=== PATIENT | female | born 1990 | race Caucasian/White ===

== ENCOUNTER → 2017-07-25 10:33 | Outpatient (CLI) | payer BC, SELFPAY ==
[2017-07-31 04:11] LABS: Alternaria tenuis <0.10 kU/L (Class 0); Ash, White <0.10 kU/L (Class 0); Aspergillus fumigatus <0.10 kU/L (Class 0); Bermuda Grass <0.10 kU/L (Class 0); Birch <0.10 kU/L (Class 0); Black Walnut <0.10 kU/L (Class 0); Cat Hair / Dander,Stand <0.10 kU/L (Class 0); Cedar, Mountain <0.10 kU/L (Class 0); Cladosporium herbarum <0.10 kU/L (Class 0); Cockroach, American 0.56 kU/L (Class II); Cottonwood <0.10 kU/L (Class 0); D farinae Mite <0.10 kU/L (Class 0); D pteronyssinus <0.10 kU/L (Class 0); Dog Epithelia <0.10 kU/L (Class 0); Elm, American White <0.10 kU/L (Class 0); Immunoglobulin E 58 IU/mL (0-100); Maple/Box Elder <0.10 kU/L (Class 0); Mulberry, White <0.10 kU/L (Class 0); Oak, White <0.10 kU/L (Class 0); Pecan <0.10 kU/L (Class 0); Penicillium Notatum <0.10 kU/L (Class 0); Pigweed, Rough <0.10 kU/L (Class 0); Ragweed, Short/Common <0.10 kU/L (Class 0); Russian Thistle <0.10 kU/L (Class 0); Sheep Sorrel <0.10 kU/L (Class 0); Sycamore, American <0.10 kU/L (Class 0); Timothy Grass <0.10 kU/L (Class 0)
[2017-07-31 11:39] LABS: Mouse Urine <0.10 kU/L (Class 0)
== END ==
PROVIDERS: Family Provider Family Medicine; PCP Family Medicine; Visit Provider Otolaryngology
DX: T78.40XA Allergy, unspecified, initial encounter (principal)
CPT/HCPCS: 36415; 82785; 86003

== ENCOUNTER → 2017-09-04 15:19 | Outpatient (CLI) | payer BC, SELFPAY ==
[2017-09-04 16:13] LABS: Hematocrit 39.9 % (37-47); Hemoglobin 13.1 g/dl (12.0-15.0); Mean Corp Hgb Conc 32.8 g/gl (32-36); Mean Corpuscular Hgb 29.8 pg (27.0-32.0); Mean Corpuscular Volume 90.7 fL (81-99); Mean Platelet Vol. 9.1 fl (6.2-12.0); Platelet Count 273 K/mm3 (150-450); RBC Distribution Width CV 11.8 % (11.6-14.6); RBC Distribution Width SD 38.7 fl (35.1-43.9); White Blood Count 10.1 K/mm3 (4.4-11.0)
[2017-09-04 16:17] LABS: Scan Indicated on CBC? Y/N NO
[2017-09-04 17:01] LABS: Anion Gap 7 (5-15); BUN 15 mg/dL (7-18); BUN/Creat Ratio 20.7 RATIO (10-20); Calcium,Total 9.3 mg/dL (8.5-10.1); Chloride 106 mmol/L (98-107); Creatinine, Serum 0.73 mg/dL (0.55-1.02); EST Glomerular Filtration Rate 103 mL/min (>60); Est Glom Filt Rate - Afr Amer 124 mL/min (>60); Glucose 85 mg/dL (74-106); Potassium 3.9 mmol/L (3.5-5.1); Sodium Level 141 mmol/L (136-145); Thyroid Stim Hormone (TSH) 2.57 uIU/mL (0.358-3.74)
== END ==
PROVIDERS: Family Provider Family Medicine; PCP Family Medicine; Visit Provider Internal Medicine Cardiovascular Disease
DX: R00.2 Palpitations (principal)
CPT/HCPCS: 36415; 80048; 84443; 85027

== ENCOUNTER → 2018-01-09 09:34 | Outpatient (CLI) | payer MEDICAID, SELFPAY ==
[2018-01-09 14:00] LABS: Chlamydia Trachomatis by PCR Negative (Negative); Neisserai gonorrhoeae by PCR Negative (Negative); Probe Check PASS; Sample Adequacy Control PASS; Specimen Processing Control PASS
[2018-01-14 09:05] LABS: HPV Reflexed? NOT INDICATED
== END ==
PROVIDERS: Visit Provider Obstetrics & Gynecology
DX: Z12.4 Encounter for screening for malignant neoplasm of cervix (principal); Z11.3 Encounter for screening for infections with a predominantly sexual mode of transmission
CPT/HCPCS: 87491; 87591; 88175; G0145

== ENCOUNTER → 2018-01-23 13:43 | Outpatient (CLI) | payer MEDICAID, SELFPAY ==
[2018-01-23 15:39] LABS: Absolute Lymphocyte Count 1.93 X10^3/ul (0.83-4.51); Absolute Neutrophil Count 7.3 X10^3/uL (2.0-7.7); Basophil# 0.02 X10^3/uL; Basophil% 0.2 % (0-1); Color, Urine Yellow (Yellow); Eosinophil# 0.11 X10^3/uL; Eosinophils% 1.1 % (0-5); Glucose, Dipstick Normal (Normal); Hematocrit 36.5 % (37-47); Hemoglobin 12.3 g/dl (12.0-15.0); Ketone-Dipstick 5 mg/dl (Negative); Leukocyte Esterase-Dipstick 25 /ul (Negative); Lymphocyte # 1.93 X10^3/ul (4.0); Lymphocyte % 19.5 % (19-41); Mean Corp Hgb Conc 33.7 g/gl (32-36); Mean Corpuscular Hgb 29.8 pg (27.0-32.0); Mean Corpuscular Volume 88.4 fL (81-99); Mean Platelet Vol. 9.3 fl (6.2-12.0); Monocyte# 0.56 X10^3/uL; Monocyte% 5.6 % (0-10); Neutrophil # 7.26 X10^3/uL (2.7-7.7); Neutrophil % 73.2 % (47-70); Nitrite-Dipstick Negative (Negative); Occult Blood-Urine 25 /ul (Negative); Platelet Count 272 K/mm3 (150-450); Protein-Dipstick 15 mg/dl (Negative); RBC Distribution Width CV 11.7 % (11.6-14.6); RBC Distribution Width SD 37.2 fl (35.1-43.9); Red Blood Count 4.13 M/mm3 (4.2-5.4); Urine Bilirubin Dipstick Negative (Negative); Urine Clarity Sl. Cloudy (Clear); Urine Urobilinogen Normal (Normal); White Blood Count 9.9 K/mm3 (4.4-11.0)
[2018-01-23 15:42] LABS: POSITIVE COUNT NO; POSITIVE DIFFERENTIAL NO; POSITIVE MORPHOLOGY NO
[2018-01-23 15:58] LABS: Thyroid Stim Hormone (TSH) 1.42 uIU/mL (0.358-3.74)
[2018-01-23 16:16] LABS: Amphetamine Urine VISTA NEGATIVE (<1000 ng/mL); Barbiturate Urine VISTA NEGATIVE (< 200 ng/mL); Benzodiazepine Urine VISTA NEGATIVE (< 200 ng/mL); Cocaine Urine VISTA NEGATIVE (< 300 ng/mL); Ecstacy Urine VISTA NEGATIVE (< 500 ng/mL); Methadone Urine VISTA NEGATIVE (< 300 ng/mL); PCP Urine VISTA NEGATIVE (< 25 ng/mL); THC Urine VISTA NEGATIVE (< 50 ng/mL); Vista UDS pH Range 5
[2018-01-23 16:30] LABS: COTININE Drug Screen Negative (<200 ng/mL)
[2018-01-23 16:37] LABS: HIV - WCH Non-Reactive (Nonreactive); Rubella IgG 44.5 IU/mL
[2018-01-24 05:44] LABS: Prenatal RPR NONREACTIVE (NONREACTIVE)
[2018-01-28 11:52] LABS: HEPATITIS B SURFACE AG Negative (Negative); Hep C Antibodies <0.1 s/co ratio (0.0-0.9)
== END ==
PROVIDERS: Visit Provider Obstetrics & Gynecology
DX: Z34.81 Encounter for supervision of other normal pregnancy, first trimester (principal)
CPT/HCPCS: 36415; 80307; 81002; 84443; 85025; 86703; 86762; 86803; 87340

== ENCOUNTER → 2018-02-20 15:44 | Outpatient (CLI) | payer MEDICAID, SELFPAY | PROVIDERS: Visit Provider Obstetrics & Gynecology | DX: O23.41 Unspecified infection of urinary tract in pregnancy, first trimester (principal); Z3A.00 Weeks of gestation of pregnancy not specified | CPT/HCPCS: 87086; 87088 ==

== ENCOUNTER → 2018-05-28 14:55 | Outpatient (CLI) | payer OTHER, MEDICAID, SELFPAY ==
[2017-09-04 14:39] VITALS: BMI 25.7
[2018-05-28 15:58] LABS: Glucose Challenge Gest 1H 50g 94 mg/dL (70-140)
[2018-05-28 16:07] LABS: Hematocrit 33.1 % (37-47); Mean Corp Hgb Conc 33.2 g/gl (32-36); Mean Corpuscular Hgb 30.6 pg (27.0-32.0); Mean Corpuscular Volume 91.9 fL (81-99); Mean Platelet Vol. 8.3 fl (6.2-12.0); Platelet Count 337 K/mm3 (150-450); RBC Distribution Width CV 11.9 % (11.6-14.6); RBC Distribution Width SD 38.4 fl (35.1-43.9); White Blood Count 14.2 K/mm3 (4.4-11.0)
[2018-05-28 16:08] LABS: Scan Indicated on CBC? Y/N NO
== END ==
PROVIDERS: Visit Provider Obstetrics & Gynecology
DX: Z34.83 Encounter for supervision of other normal pregnancy, third trimester (principal)
CPT/HCPCS: 82950; 85027

== ENCOUNTER → 2018-07-31 | Outpatient (CLI) | payer OTHER, MEDICAID, SELFPAY ==
[2017-09-04 14:39] VITALS: BMI 25.7
== END | disposition home or self-care (01) ==
LOC: WOBLAB 16:18
PROVIDERS: Visit Provider Obstetrics & Gynecology
DX: Z36.85 Encounter for antenatal screening for Streptococcus B (principal)
CPT/HCPCS: 87081

== ENCOUNTER → 2018-08-07 15:06 | Outpatient (CLI) | payer OTHER, MEDICAID, SELFPAY ==
[2018-08-07 15:17] LABS: ROM Internal Control Test YES-OK TO RESULT pt. (Internal QC)
[2018-08-07 15:19] LABS: ROM Patient Test Negative (Negative)
== END ==
PROVIDERS: Family Provider Nurse Practitioner Family; PCP Nurse Practitioner Family; Referring Provider Obstetrics & Gynecology; Visit Provider Obstetrics & Gynecology
DX: Z34.83 Encounter for supervision of other normal pregnancy, third trimester (principal)
CPT/HCPCS: 84112

== ENCOUNTER 2018-08-20 06:50 | Inpatient (IN) | payer OTHER, MEDICAID, SELFPAY ==
[2017-09-04 14:39] VITALS: BMI 25.7
[2018-08-20] MEDS: Oxytocin 30 units/NS 500 ml 30 UNITS/500 ML IV.SOLN IV (07:37)
[2018-08-20] MEDS: Lactated Ringers 1,000 ML 50 ML IV ×2 (07:37→12:28)
[2018-08-20 07:41] LABS: Hematocrit 34.7 % (37-47); Hemoglobin 11.4 g/dl (12.0-15.0); Mean Corp Hgb Conc 32.9 g/gl (32-36); Mean Corpuscular Hgb 27.8 pg (27.0-32.0); Mean Corpuscular Volume 84.6 fL (81-99); Mean Platelet Vol. 8.2 fl (6.2-12.0); Platelet Count 309 K/mm3 (150-450); RBC Distribution Width CV 12.9 % (11.6-14.6); RBC Distribution Width SD 38.6 fl (35.1-43.9); White Blood Count 12.9 K/mm3 (4.4-11.0)
[2018-08-20 07:42] LABS: Differential Indicated MANUAL DIFF; POSITIVE COUNT YES; POSITIVE DIFFERENTIAL NO; POSITIVE MORPHOLOGY YES
[2018-08-20 07:46] VITALS: BMI 30.7
[2018-08-20 08:24] LABS: Eosinophil 2 % (0-5); Lymphocyte 17 % (19-41); Metamyelocyte 4 % (0-1); Monocyte 10 % (0-10); Myelocyte 1 (0-0); Neutrophil-Band 3 % (0-5); Neutrophil-Segmented 63 % (47-70); Total Cells Counted 100 (MANUAL DIFF)
[2018-08-20 08:25] LABS: Platelet Estimate ADEQUATE (ADEQ); Red Cell Morphology NORM C+C NORMAL (NORM C&C)
[2018-08-20 08:27] LABS: Absolute Lymphocyte Count 2.19 X10^3/ul (0.83-4.51); Absolute Neutrophil Count 8.5 X10^3/uL (2.0-7.7)
[2018-08-20] MEDS: fentaNYL-bupivacaine (epidural) 100 ML BAG EPIDURAL (12:28)
[2018-08-20 15:06] LABS: Pathologist Review Reviewed
[2018-08-20] MEDS: Oxytocin 30 units/NS 500 ml 30 UNITS/500 ML IV.SOLN 334 UNITS IV (15:15)
--- NOTE | 2018-08-20 15:25 | PCM.OPRPT ---
Vaginal Delivery Maternal Presentation: Elective Induction 39w2d ega admitted for elective induction of labor Method of Induction: Pitocin Amniotic Membrane Rupture Type: Artificial Rupture of Membrane time: 1042 Amniotic Fluid Description: Clear Final STEFANIA: 08/25/18 Final STEFANIA Source: US <20 weeks Gestational age: 39 Weeks and 2 Days Date of Procedure: 08/20/18 Pre-Operative Diagnosis: labor Post-Operative Diagnosis: same Surgery/ Procedure Performed: Spontaneous Vaginal Delivery Anesthesiologist: Steve Valles Type of Anesthesia: Epidural Description of Procedure: Progressed to FD then pushed over 15 minutes to deliver a live female without complication. Delayed cord clamping employed. Placenta delivered spontaneously intact. The uterus contracted well. Inspection revealed an intact cervix, vagina and perineum. Presentation: Vertex Placental Delivery Description: Spontaneous Placenta Disposition: [facility] Percentage of Placenta Abruption: 0 Cord Vessel Description: 3 Vessels Cord Entanglement: None Drain: [place] to straight drain Estimated Blood Loss: 200cc A gender: Female (1 minute): 8 (5 minute): 9 Episiotomy Description: None Laceration: None Medications given after delivery: IV Pitocin Complications: None
--- NOTE | 2018-08-20 15:30 | DCINST_ITS ---
Discharge Diet: No Restrictions Discharge Activity: Return to Normal Activity, May Drive, May Shower Return to work on:: 10/06/18 May shower in (days): 0 May resume sexual activity in: 6 weeks Call your doctor if your incision/area has: Sudden Increased Bleeding, Increased Pain/ Swelling, Foul Smelling Discharge Call your doctor if you observe: Fever of 101 or Higher, Inability to urinate, Inability to have a bowel movement, Using more than one pad per hour, Shortness of breath, Chest pain, Calf discomfort, Uncontrolled pain Cleanse incision/area with: Soap & Water Additional Instructions: If you experience any of the following, contact your healthcare provider. * Bleeding that soaks a pad every hour for 2 hours * Fever 100.4 or higher * Unrelieved incision or abdominal pain * Swelling, redness, discharge or bleeding from your incision or episiotomy site * Your incision begins to separate * Problems urinating (including inability to urinate or burning while urinating). * Visual changes * Severe headache * Flu-like symptoms * Pain or redness in one of both of your breasts * Pain, warmth, tenderness or swelling in your legs, especially the calf area * Frequent nausea and vomiting * Symptoms of depression or anxiety If you experience any of the following, call 911 or go to the nearest Emergency Room. * Chest pain * Problems breathing * Seizure activity * Partial or complete paralysis of a body part, slurred speech, weakness or drooping of the face, or a sudden inability to walk or hold your balance Allergies/Adverse Reactions: Allergies No Known Allergies Allergy (Verified 09/04/17 14:36) Medications to take at Discharge Ibuprofen [Motrin] 600 mg PO Q6H PRN PRN #30 tab 08/20/18 Pantoprazole Sodium [Protonix] 40 mg PO DAILY 08/20/18 Vits [Prenatabs FA ] 1 tablet PO DAILY 08/20/18 The following prescriptions were given: Ibuprofen [Motrin] 600 mg PO Q6H PRN PRN #30 tab PRN Reason: pain or cramping Please Follow Up With: Roger Merlos MD When: 6 weeks Primary Care Physician: Joao Santizo, ERNA-C [Primary Care Provider] - Test Results: Test results from this visit will be discussed in further detail at your follow- up appointment, if applicable. Proposed Discharge Date: 08/22/18
[2018-08-20] MEDS: Oxytocin 30 units/NS 500 ml 30 UNITS/500 ML IV.SOLN 167 UNITS IV (15:45)
[2018-08-20] MEDS: 0.9% Saline Lock 10 ML Syringe IV (17:52)
[2018-08-20 20:10] VITALS: BP 116/55; PULSE 63; RESP 18; TEMP 36.7; O2SAT 97
[2018-08-21 00:10] VITALS: BP 110/56; PULSE 62; RESP 18; TEMP 36.1
[2018-08-21] MEDS: Acetaminophen 500 MG Tablet 1000 MG PO (03:31)
[2018-08-21 03:45] VITALS: BP 123/58; PULSE 76; RESP 18; TEMP 36.1
[2018-08-21 06:49] LABS: Hematocrit 33.3 % (37-47); Hemoglobin 10.8 g/dl (12.0-15.0); Mean Corp Hgb Conc 32.4 g/gl (32-36); Mean Corpuscular Hgb 27.8 pg (27.0-32.0); Mean Corpuscular Volume 85.8 fL (81-99); Mean Platelet Vol. 8.1 fl (6.2-12.0); Platelet Count 256 K/mm3 (150-450); RBC Distribution Width CV 12.8 % (11.6-14.6); RBC Distribution Width SD 39.2 fl (35.1-43.9); Red Blood Count 3.88 M/mm3 (4.2-5.4); White Blood Count 13.7 K/mm3 (4.4-11.0)
[2018-08-21 06:50] LABS: Scan Indicated on CBC? Y/N NO
--- NOTE | 2018-08-21 08:25 | PCM.PN.OB ---
Subjective: No specific complaints. Breast feeding. Bleeding light. Objective: Afeb VSS Hgb stable - Physical Exam General: Alert, Oriented x3, Cooperative, No apparent distress Lungs: Clear to auscultation, Normal air movement Cardiovascular: Regular rate, Regular Rhythm Abdomen: Soft, Non Tender, Non-Distended Extremities: No edema Skin: No rashes Neurological: Neuro grossly intact Psych/Mental Status: Normal Affect Comment: Lochia appropriate Vital Signs Temp Pulse Resp BP Pulse Ox 96.9 F L 76 18 123/58 H 97 08/21/18 03:45 08/21/18 03:45 08/21/18 03:45 08/21/18 03:45 08/20/18 20:10 Oxygen Delivery Method Room Air Weight: 173 lb 4.533 oz Body Mass Index (BMI) 30.7 Intake and Output for Last 24 Hours 08/19/18 08/20/18 08/21/18 23:59 23:59 23:59 Intake Total 2938 / 2938 Output Total 400 / 400 Balance 2538 / 2538 Laboratory Tests Past 24 Hrs 08/20/18 08/20/18 08/21/18 07:25 07:25 06:35 WBC 13.7 H RBC 3.88 L Hgb 10.8 L Hct 33.3 L MCV 85.8 MCH 27.8 MCHC 32.4 RDW 12.8 RDW Differential 39.2 Plt Count 256 MPV 8.1 Absolute Neuts (auto) 8.5 H Absolute Lymphs (auto) 2.19 Total Counted 100 Neutrophils % (Manual) 63 Band Neutrophils % 3 Lymphocytes % (Manual) 17 L Monocytes % (Manual) 10 Eosinophils % (Manual) 2 Metamyelocytes % 4 H Myelocytes % 1 H Diff Path Review Reviewed Platelet Estimate ADEQUATE RBC Morphology NORM C+C Blood Type A POSITIVE Antibody Screen NEGATIVE Medical Necessity - Tobacco Use Smoking Status: Never smoker Assessment/Plan All Active Problems (Last Reviewed 09/04/17 @ 14:54 by René Madrid MD) Chest pain (Acute) Fatigue (Acute) Palpitation (Acute) Doing well on PP day#1. Will consider discharge later today or tomorrow if desires. Continue routine PP care.
[2018-08-21 08:57] VITALS: BP 119/42; PULSE 75; RESP 14; TEMP 36.4
[2018-08-21] MEDS: Prenatal Vits Tablet 1 TABLET PO (10:13)
[2018-08-21] MEDS: Pantoprazole Sodium 40 MG Tablet PO (10:13)
--- NOTE | 2018-08-21 12:12 | PCM.DC.SUM ---
Discharge Date and Diagnosis Date of Admission: 08/20/18 Date of Discharge: 08/21/18 - Primary Discharge Diagnosis s/p Hospital Course and Treatment Operations: None Procedures: - - Pitocin induction, peidural, Summary of Care Provided: The patient is a 28 year old F [admitted at 39w2d [facility] for elective induction. She progressed over 6 hours to FD then pushed for a short time to deliver a live without complication. Post course was unremarkable. Discharged home on PP day#1.] - Physical Exam Vital Signs Temp Pulse Resp BP Pulse Ox 97.5 F L 75 14 119/42 L 97 08/21/18 08:57 08/21/18 08:57 08/21/18 08:57 08/21/18 08:57 08/20/18 20:10 Oxygen Delivery Method Room Air Weight: 173 lb 4.533 oz Body Mass Index (BMI) 30.7 Intake and Output for Last 24 Hours 08/19/18 08/20/18 08/21/18 23:59 23:59 23:59 Intake Total 2938 / 2938 Output Total 400 / 400 Balance 2538 / 2538 Laboratory Tests Past 24 Hrs 08/20/18 08/21/18 07:25 06:35 WBC 13.7 H RBC 3.88 L Hgb 10.8 L Hct 33.3 L MCV 85.8 MCH 27.8 MCHC 32.4 RDW 12.8 RDW Differential 39.2 Plt Count 256 MPV 8.1 Diff Path Review Reviewed Discharge Diet: No Restrictions Discharge Activity: Return to Normal Activity, May Drive, May Shower Return to work on:: 10/06/18 May shower in (days): 0 May resume sexual activity in: 6 weeks Call your doctor if your incision/area has: Sudden Increased Bleeding, Increased Pain/ Swelling, Foul Smelling Discharge Call your doctor if you observe: Fever of 101 or Higher, Inability to urinate, Inability to have a bowel movement, Using more than one pad per hour, Shortness of breath, Chest pain, Calf discomfort, Uncontrolled pain Cleanse incision/area with: Soap & Water Home Medications: Medications to take at Discharge Ibuprofen [Motrin] 600 mg PO Q6H PRN PRN #30 tab 08/20/18 Pantoprazole Sodium [Protonix] 40 mg PO DAILY 08/20/18 Vits [Prenatabs FA ] 1 tablet PO DAILY 08/20/18 Following Prescrptions Were Given to Patient: Ibuprofen [Motrin] 600 mg PO Q6H PRN PRN #30 tab PRN Reason: pain or cramping Primary Care Physician: Joao Santizo, ERNA-C [Primary Care Provider] - Please Follow Up With: Roger Merlos MD When: 6 weeks Disposition: Home Minutes spent on discharge:: 15 Patient Condition:: Good Medical Necessity - Tobacco Use Smoking Status: Never smoker Meaningful Use Info Meaningful Use Diagnoses (Choose all that apply): None applicable
[2018-08-21 12:32] VITALS: BP 127/65; PULSE 88; RESP 14; TEMP 36.3
[2018-08-21 17:38] VITALS: BP 124/41; PULSE 104; RESP 14; TEMP 36.3
--- NOTE | 2018-08-21 18:19 | NURSING ---
1809- placed in car seat by patient. patient to w/c and placed on mothers lap. and patient to private car via w/c in stable condition.
== END 2018-08-21 18:10 | disposition home or self-care (01) | DRG 807 ==
PROVIDERS: Admitting Provider Obstetrics & Gynecology; Family Provider Nurse Practitioner Family; PCP Nurse Practitioner Family; Referring Provider Obstetrics & Gynecology; Visit Provider Obstetrics & Gynecology
DX: O80 Encounter for full-term uncomplicated delivery (principal); Z3A.39 39 weeks gestation of pregnancy; Z37.0 Single live birth
CPT/HCPCS: 59025; 59050; 85025; 85027; 86850; 86900; 99218; J7120; A4216; G0378

== ENCOUNTER 2020-08-30 20:22 | Emergency (ER) | payer BC, MEDICAID, SELFPAY ==
[2020-08-30] VITALS (9 sets, daily range): BP systolic 101–150; BP diastolic 56–112; PULSE 101–120; RESP 16–30; TEMP 36.2–37.1; O2SAT 93–100; BMI 26.2; BMI 26.0
--- NOTE | 2020-08-30 20:28 | CT_ITS ---
STUDY: CT BRAIN WITHOUT CONTRAST REASON FOR EXAM: Female, 30 years old. seizure RADIATION DOSAGE (If Supplied By Facility): CTDIvol = ( 44.99 ) mGy, DLP = ( 779.24 ) mGycm TECHNIQUE: Transaxial CT imaging of the brain was performed without administration of intravenous contrast material. Individualized dose optimization techniques were used for this CT. COMPARISON: No relevant priors. FINDINGS: Normal soft tissue structures. Normal calvarium. Normal size ventricles and extra-axial spaces for the patient''s age. Normal white matter tracts of the cerebral hemispheres. Normal basal ganglia and thalami. Normal brainstem. Normal cerebellum. There is no intracranial hemorrhage. There are no findings of an acute ischemic infarction. Normal visualized paranasal sinuses. CT/Brain/Head without Contrast IMPRESSION: Normal unenhanced CT scan of the brain. MRI may be helpful for further evaluation Electronically Signed: Dante Morrow MD at 21:09 EDT , Service support ,
[2020-08-30] MEDS: LORazepam 2 MG/ML Syringe IV ×3 (20:30→22:47)
[2020-08-30 20:45] LABS: Absolute Lymphocyte Count 3.28 X10^3/uL (0.83-4.51); Basophil# 0.06 X10^3/uL; Basophil% 0.3 % (0-1); Eosinophils% 0.5 % (0-5); Hematocrit 36.1 % (37-47); Lymphocyte # 3.28 X10^3/ul (0.83-4.51); Lymphocyte % 17.6 % (19-41); Mean Corp Hgb Conc 33.2 g/dL (32-36); Mean Corpuscular Hgb 30.1 pg (27.0-32.0); Mean Corpuscular Volume 90.5 fL (81-99); Monocyte# 1.05 X10^3/uL; Monocyte% 5.6 % (0-10); NRBC Flagged by Analyzer 0 % (0-5); Neutrophil # 13.95 X10^3/uL (2.7-7.7); Neutrophil % 75.2 % (47-70); Platelet Count 273 K/mm3 (150-450); RBC Distribution Width CV 11.2 % (11.6-14.6); RBC Distribution Width SD 37.4 fl (35.1-43.9); Red Blood Count 3.99 M/mm3 (4.2-5.4); White Blood Count 18.6 K/mm3 (4.4-11.0)
[2020-08-30 20:50] LABS: Prothrombin Time (Protime)PT. 12.7 SECONDS (11.7-14.9)
[2020-08-30 20:51] LABS: Partial Thromboplast Time 21.3 Seconds (24.1-36.2)
[2020-08-30 21:00] LABS: Bacteria 0 SEEN /hpf (None Seen); Color, Urine Yellow (Yellow); Glucose, Dipstick Normal (Normal); Ketone-Dipstick 15 mg/dl (Negative); Leukocyte Esterase-Dipstick 25 /ul (Negative); Nitrite-Dipstick Negative (Negative); Occult Blood-Urine 50 /ul (Negative); Protein-Dipstick 100 mg/dl (Negative); Specific Gravity, Urine 1.015 (1.002-1.030); Urine Bilirubin Dipstick Negative (Negative); Urine Clarity Clear (Clear); Urine Urobilinogen 1 mg/dl (Normal); Urine pH 6.5 (5.0 - 8.0)
[2020-08-30 21:06] LABS: ALB/GLOB Ratio 1.2 RATIO (0.9-2.4); AST(SGOT) 11 U/L (15-37); Alanine Aminotransfer ALT/SGPT 15 U/L (13-56); Albumin, Serum 3.8 g/dL (3.2-5.0); Alkaline Phosphatase 47 U/L (45-117); Anion Gap 14 (5-15); BUN 13 mg/dL (7-18); BUN/Creat Ratio 13.8 RATIO (10-20); Calcium,Total 8.9 mg/dL (8.5-10.1); Chloride 102 mmol/L (98-107); Creatinine, Serum 0.94 mg/dL (0.55-1.02); EST Glomerular Filtration Rate 75 mL/min (>60); Est Glom Filt Rate - Afr Amer 90 mL/min (>60); Estimated Creatinine Clearance 79.46 ml/min; Globulin 3.3 g/dL (2.2-4.2); Glucose 146 mg/dL (74-106); Potassium 3.4 mmol/L (3.5-5.1); Protein, Total 7.1 g/dL (6.4-8.2); Sodium Level 136 mmol/L (136-145)
--- NOTE | 2020-08-30 21:10 | RAD_ITS ---
STUDY: X-RAY CHEST REASON FOR EXAM: Female, 30 years old. seizure TECHNIQUE: AP portable COMPARISON: None. FINDINGS: The lungs are clear and expanded. There is no demonstrated pleural abnormality. Normal size heart. Normal mediastinum and rogers. Normal visualized pulmonary arteries. Normal visualized aortic arch and descending thoracic aorta. Dorsal spine demonstrates minor dextroscoliosis deformity or splinting.. Normal visualized ribs, clavicles, and shoulders. There is no demonstrated abnormality of the visualized soft tissue structures of the upper abdomen. RAD/Chest 1 View (Portable) IMPRESSION: No acute cardiopulmonary pathology. Electronically Signed: Dante Morrow MD at 21:38 EDT , Service support ,
[2020-08-30 21:11] LABS: Mucous, Urine 1+ /hpf (<or=2+); Red Blood Cells-Urine 0-5 SEEN /hpf (0-5); Squamous Epithelial Cells - UA 0-5 SEEN /hpf (5-10); White Blood Cells 0-5 SEEN /hpf (0-5)
--- NOTE | 2020-08-30 21:19 | ED.RN ---
Dr Julia matthew of lab call for 5 lactic level
[2020-08-30 21:23] LABS: Amphetamine Urine VISTA NEGATIVE (<1000 ng/mL); Barbiturate Urine VISTA NEGATIVE (< 200 ng/mL); Benzodiazepine Urine VISTA NEGATIVE (< 200 ng/mL); Cocaine Urine VISTA NEGATIVE (< 300 ng/mL); Ecstacy Urine VISTA NEGATIVE (< 500 ng/mL); Methadone Urine VISTA NEGATIVE (< 300 ng/mL); PCP Urine VISTA NEGATIVE (< 25 ng/mL); THC Urine VISTA NEGATIVE (< 50 ng/mL); Vista UDS pH Range 5
--- NOTE | 2020-08-30 21:34 | PCM.HP.STD ---
HPI - General HPI Narrative The patient is a 30 y/o F w/ no marked PMHx aside history of with recent miscarriage, diagnosed apparently at 8 weeks but now 4 weeks past this timeline she notes and recently initiated on misoprostol per Dr. Merlos with 1st dose on day of ED presentation who presents to the [facility] ED on 08/30/20 with worsened bleeding on day of presentation concurrently and as noted initiation of misoprostol with first dose on day of presentation secondary to length of time following miscarriage with increased bleeding around 2 PM with following this questionable syncopal event with loss of consciousness and prompting EMS call with concern for posturing witnessed also in the ED upon evaluation. Patient with no specific loss of bowel or bladder nor tongue bitting. In the ED following treatments patient slowly improved initially placed on a nonrebreather, protecting her airway and eventually her mental status returned to her baseline slowly. Work-up in the ED included T 97.6, heart rate 108, BP 101/91, respiratory rate 16, 100% now on room air but prior had been initially on a nonrebreather secondary to decreased mental status, CBC with WC 18.6, hemoglobin 12, platelet 273 with left shift, coags with PT 12.7, INR 1, PTT 21.3, CMP with potassium 3.4, carbon oxide 20, glucose 146, lactic acid 5, total bilirubin 0.50, AST/LT 11/15, troponin less than 0.015, urinalysis with specific gravity 1.015, protein 100, ketone 15, occult blood 50, negative nitrite, leukocyte esterase 25, no urine bacteria, urine drug screen negative, ethyl alcohol pending, blood type a positive antibody screen negative, chest x-ray with no acute cardiopulmonary findings, CT brain with no acute intracranial findings. In the ED patient ministered normal saline as well as Ativan 2 mg IV x1. [facility] Medical History MVP (mitral valve prolapse) Home Medications misoprostol 200 mcg PO DAILY PRN 08/30/20 [History Last Taken Unknown] Allergy/AdvReac Type Severity Reaction Status Date / Time Unable to Assess Allergy Verified 08/30/20 20:41 Family History (Updated 08/30/20 @ 21:[address] Hillary Morales MD) Mother Diabetes Father Sarcoidosis unable to obtain (Surgical history: Morgan teeth extraction.) Social History (Updated 08/30/20 @ 21:[address] Hillary Morales MD) household members: spouse Smoking Status: Never smoker alcohol intake: never substance use type: does not use ROS ROS Narrative Admission Review of Systems: CONSTITUTIONAL: No weight loss, fever, chills, + weakness or fatigue. HEENT: Eyes: No visual loss, blurred vision, double vision or yellow sclerae. Ears, Nose, Throat: No hearing loss, sneezing, congestion, runny nose or sore throat. SKIN: No rash or itching, lesions, wounds. CARDIOVASCULAR: + Syncope, No chest pain, chest pressure or chest discomfort, palpitations, edema, orthopnea. RESPIRATORY: No shortness of breath, cough or sputum, wheezing, hemoptysis. GASTROINTESTINAL: No anorexia, nausea, vomiting or diarrhea, abdominal pain, melena, BRBPR. GENITOURINARY: + Recent onset bleeding w/ miscarriage. No dysuria, frequency, urgency or retention. NEUROLOGICAL: + Syncope, ? Seizure, No headache, dizziness, paralysis, ataxia, numbness or tingling in the extremities, focal weakness, change in bowel or bladder control. MUSCULOSKELETAL: No muscle, back pain, joint pain or stiffness. HEMATOLOGIC: + anemia, bleeding or bruising. LYMPHATICS: No enlarged nodes. No history of splenectomy. PSYCHIATRIC: No history of depression or anxiety. ENDOCRINOLOGIC: No reports of sweating, cold or heat intolerance. No polyuria or polydipsia. ALLERGIES: No history of asthma, hives, eczema or rhinitis. Vital Signs Vital Signs Vital Signs: 08/30/20 20:23 08/30/20 20:31 08/30/20 20:42 Temperature 98.8 F Temperature Source Temporal Pulse Rate 101 H 106 H 114 H Respiratory Rate 28 H 16 24 H Blood Pressure 120/112 H 150/112 H Blood Pressure Mean 114 124 Pulse Ox 100 100 100 Oxygen Delivery Method Non-Rebreather Non-Rebreather Non-Rebreather Oxygen Flow Rate (L/min) 15 15 15 08/30/20 20:47 08/30/20 20:57 Temperature 97.2 F L 97.6 F L Temperature Source Temporal Temporal Pulse Rate 106 H 108 H Respiratory Rate 30 H 16 Blood Pressure 101/91 H 101/91 H Blood Pressure Mean 94 94 Pulse Ox 99 100 Oxygen Delivery Method Non-Rebreather Non-Rebreather Oxygen Flow Rate (L/min) 15 15 Physical Exam Narrative Physical Examination: General: awake, alert, oriented x 3 and cooperative, seated upright in the ED bed, significantly proved since initial presentation, no longer presumed postictal. Skin: normal color, turgor, no icterus, cyanosis. HEENT: AT/NC, EOMI, PERRLA, moderately dry MM, no carotid bruits or JVD noted. Lungs: CTA bilaterally, moderate effort, mild decrease BL bases, no rales, ronchi or wheezing. Heart: Improved, regular rate and rhythm; no gallop, rub audible. Abdomen: soft, mild lower abdominal discomfort expected, no rebound or guarding, ND, distant normal BS, no HSM. : ED physician evaluation per his report with expected bleeding following miscarriage. Extremities: no cyanosis, clubbing, or edema. Neurological: patient awake, alert, oriented as noted, improved as initially unable to give any appropriate information, cognitive function improved, now returned to near baseline as had been encephalopathic; pupils equally reactive to light and accommodation, cranial nerves II-XII grossly normal, moving all 4 extremities, no focal deficits, strength improved, mild global decrease secondary to recent events, witnessed posturing and concern for seizure activity in the ED per discussion with ED physician and staff. Psychiatric: affect appears fatigued otherwise normal, no acute evidence of depressive or anxiety feelings. Lab / Micro Data Result Diagrams: 08/30/20 20:25 08/30/20 20:25 Labs: Laboratory Results - last 24 hr 08/30/20 08/30/20 08/30/20 20:25 20:25 20:25 WBC 18.6 H RBC 3.99 L Hgb 12.0 Hct 36.1 L MCV 90.5 MCH 30.1 MCHC 33.2 RDW Std Deviation 37.4 RDW Coeff of Garrett 11.2 L Plt Count 273 MPV 9.0 Immature Gran % (Auto) 0.800 Neut % (Auto) 75.2 H Lymph % (Auto) 17.6 L Wilson % (Auto) 5.6 Eos % (Auto) 0.5 Baso % (Auto) 0.3 Absolute Neuts (auto) 14.0 H Absolute Lymphs (auto) 3.28 Nucleated RBC % 0 PT 12.7 INR 1.0 APTT 21.3 L Sodium 136 Potassium 3.4 L Chloride 102 Carbon Dioxide 20.0 L Anion Gap 14 BUN 13 Creatinine 0.94 Estim Creat Clear Calc 79.46 Est GFR (MDRD) Af Amer 90 Est GFR (MDRD) Non-Af 75 BUN/Creatinine Ratio 13.8 Glucose 146 H Lactic Acid Calcium 8.9 Total Bilirubin 0.50 AST 11 L ALT 15 Alkaline Phosphatase 47 Troponin I < 0.015 Total Protein 7.1 Albumin 3.8 Globulin 3.3 Albumin/Globulin Ratio 1.2 Urine Color Urine Clarity Urine pH Ur Specific [place] Urine Protein Urine Glucose (UA) Urine Ketones Urine Occult Blood Urine Nitrite Urine Bilirubin Urine Urobilinogen Ur Leukocyte Esterase Urine RBC Urine WBC Ur Squamous Epith Cells Urine Bacteria Urine Mucus Urine Opiates Screen Urine Methadone Screen Ur Barbiturates Screen Ur Phencyclidine Scrn Ur Amphetamines Screen U Methamphetamin-MDMA U Benzodiazepines Scrn Urine Cocaine Screen U Cannabinoids Screen Ur Drug Screen Comment Blood Type Antibody Screen 08/30/20 08/30/20 08/30/20 20:25 20:33 20:55 WBC RBC Hgb Hct MCV MCH MCHC RDW Std Deviation RDW Coeff of Garrett Plt Count MPV Immature Gran % (Auto) Neut % (Auto) Lymph % (Auto) Wilson % (Auto) Eos % (Auto) Baso % (Auto) Absolute Neuts (auto) Absolute Lymphs (auto) Nucleated RBC % PT INR APTT Sodium Potassium Chloride Carbon Dioxide Anion Gap BUN Creatinine Estim Creat Clear Calc Est GFR (MDRD) Af Amer Est GFR (MDRD) Non-Af BUN/Creatinine Ratio Glucose Lactic Acid 5.0 H* Calcium Total Bilirubin AST ALT Alkaline Phosphatase Troponin I Total Protein Albumin Globulin Albumin/Globulin Ratio Urine Color Yellow Urine Clarity Clear Urine pH 6.5 Ur Specific [place] 1.015 Urine Protein 100 H Urine Glucose (UA) Normal Urine Ketones 15 H Urine Occult Blood 50 H Urine Nitrite Negative Urine Bilirubin Negative Urine Urobilinogen 1 H Ur Leukocyte Esterase 25 H Urine RBC 0-5 SEEN Urine WBC 0-5 SEEN Ur Squamous Epith Cells 0-5 SEEN Urine Bacteria 0 SEEN Urine Mucus 1+ Urine Opiates Screen Urine Methadone Screen Ur Barbiturates Screen Ur Phencyclidine Scrn Ur Amphetamines Screen U Methamphetamin-MDMA U Benzodiazepines Scrn Urine Cocaine Screen U Cannabinoids Screen Ur Drug Screen Comment Blood Type A POSITIVE Antibody Screen NEGATIVE 08/30/20 20:55 WBC RBC Hgb Hct MCV MCH MCHC RDW Std Deviation RDW Coeff of Garrett Plt Count MPV Immature Gran % (Auto) Neut % (Auto) Lymph % (Auto) Wilson % (Auto) Eos % (Auto) Baso % (Auto) Absolute Neuts (auto) Absolute Lymphs (auto) Nucleated RBC % PT INR APTT Sodium Potassium Chloride Carbon Dioxide Anion Gap BUN Creatinine Estim Creat Clear Calc Est GFR (MDRD) Af Amer Est GFR (MDRD) Non-Af BUN/Creatinine Ratio Glucose Lactic Acid Calcium Total Bilirubin AST ALT Alkaline Phosphatase Troponin I Total Protein Albumin Globulin Albumin/Globulin Ratio Urine Color Urine Clarity Urine pH Ur Specific [place] Urine Protein Urine Glucose (UA) Urine Ketones Urine Occult Blood Urine Nitrite Urine Bilirubin Urine Urobilinogen Ur Leukocyte Esterase Urine RBC Urine WBC Ur Squamous Epith Cells Urine Bacteria Urine Mucus Urine Opiates Screen NEGATIVE Urine Methadone Screen NEGATIVE Ur Barbiturates Screen NEGATIVE Ur Phencyclidine Scrn NEGATIVE Ur Amphetamines Screen NEGATIVE U Methamphetamin-MDMA NEGATIVE U Benzodiazepines Scrn NEGATIVE Urine Cocaine Screen NEGATIVE U Cannabinoids Screen NEGATIVE Ur Drug Screen Comment Blood Type Antibody Screen Radiology Impression Brain CT 08/30/20 20:28 IMPRESSION: Normal unenhanced CT scan of the brain. MRI may be helpful for further evaluation Electronically Signed: Dante Morrow MD at 21:09 EDT , Service support , Assessment & Plan Assessment/Plan (1) Seizure: PLAN: The patient is a 30 y/o F w/ no marked PMHx aside history of with recent miscarriage, diagnosed apparently at 8 weeks but now 4 weeks past this timeline she notes and recently initiated on misoprostol per Dr. Merlos with 1st dose on day of ED presentation who presents to the [facility] ED on 08/30/20 with worsened bleeding on day of presentation concurrently and as noted initiation of misoprostol with first dose on day of presentation secondary to length of time following miscarriage with increased bleeding around 2 PM with following this questionable syncopal event with loss of consciousness and prompting EMS call with concern for posturing witnessed also in the ED upon evaluation. 1. ? New-onset seizure: ? Seizure witnessed with posturing like activity in the ED also, postictal state with improvement while in the ED over time. Improved mental status in the emergency room. CT head without acute intracranial pathology. Will admit to PCU, maintain on telemetry in PCU on seizure precautions, obtain EEG, obtain brain MRI with and without given age, obtain TSH. Will hold on immedate AED administration but if recurrent will add keppra load and 500 mg BID. Will continue Neurology consultation once further evaluation obtained. PRN ativan IV for seizure activity. Given improvement will allow diet. Repeat CBC, CMP in AM. 2. Leukocytosis, suspected secondary to seizure activity #1: Admission CBC with WBC 18.6, suspected secondary to seizure activity with posturing and seizure-like activity noted in the ED, will continue to aggressively hydrate and trend CBC however given recent miscarriage we will closely monitor and an antibiotic therapy if appropriate. 3. Lactic acidosis: Admission lactic acid 5, notable leukocytosis concurrently, suspected secondary to #1, continue aggressive hydration and trend. 4. Active miscarriage: Patient with active miscarriage, received misoprostol dose x1 on day of ED presentation, given new onset possible seizure activity will hold this medication, will request consultation with Dr. Merlos or appropriate service covering for him. 5. Hypokalemia: Admission K+ 3.4, magnesium level requested, supplementation given, repeat level in AM. 6. Hyperglycemia: Admission glucose 146, likely stress response given acute presentation #1, to be cautious will obtain hemoglobin A1c. 7. DVT prophylaxis: SCDs, defer any chemoprophylaxis given recent and active miscarriage. Visit Charges Inpatient E&M: 88507 Init Hosp L3
--- NOTE | 2020-08-30 21:42 | EDS_ITS ---
HPI History of Present Illness Chief Complaint: Neuro S/Sx Narrative Narrative: 30-year-old female presents with concern for syncope and unresponsiveness. Brought in by EMS actively being assisted with respirations. states that she had a syncopal episode today. Had vaginal bleeding this morning and likely miscarriage and was placed on Cytotec by [facility] RN Dr. Merlos. Patient has no history of seizure. He denies any recent head injury. Patient cannot provide history of present illness given the critical nature of her condition. PFSH PFSH Medical History MVP (mitral valve prolapse) no medical history Home Medications misoprostol 200 mcg PO DAILY PRN 08/30/20 [History Last Taken Unknown] Allergy/AdvReac Type Severity Reaction Status Date / Time Unable to Assess Allergy Verified 08/30/20 20:41 Family History (Updated 08/30/20 @ 21:[address] Hillary Morales MD) Mother Diabetes Father Sarcoidosis no significant family history no surgical history Social History household members: spouse Smoking Status: Never smoker alcohol intake: never substance use type: does not use ROS ROS ED Review of Systems ROS Unobtainable: other Details: Due to critical nature of presentation. EXAM Physical Exam Const Vital Signs: 08/30/20 20:23 08/30/20 20:31 08/30/20 20:42 Temperature 98.8 F Temperature Source Temporal Pulse Rate 101 H 106 H 114 H Respiratory Rate 28 H 16 24 H Blood Pressure 120/112 H 150/112 H Blood Pressure Mean 114 124 Pulse Ox 100 100 100 Oxygen Delivery Method Non-Rebreather Non-Rebreather Non-Rebreather Oxygen Flow Rate (L/min) 15 15 15 08/30/20 20:47 08/30/20 20:57 Temperature 97.2 F L 97.6 F L Temperature Source Temporal Temporal Pulse Rate 106 H 108 H Respiratory Rate 30 H 16 Blood Pressure 101/91 H 101/91 H Blood Pressure Mean 94 94 Pulse Ox 99 100 Oxygen Delivery Method Non-Rebreather Non-Rebreather Oxygen Flow Rate (L/min) 15 15 Positive well nourished and well developed General Appearance ED: well developed HEENT Reports TM's clear and moist mucous membranes normocephalic and atraumatic Tympanic Membrane ED: Yes TM's clear Eyes Eyes Narrative: Hippus. Neck no lymphadenopathy, supple and no JVD Chest Wall inspection of chest normal Resp normal respiratory effort and clear to auscultation bilaterally Cardio S1 normal heart sound, S2 normal heart sound and no murmurs Rate: tachycardic Peripheral Pulses: pulses 2+ throughout GI soft to palpation, non-tender and non-distended Back/Spine no thoracic nor lumbar tenderness Extremity normal to inspection General Extremety ED: Negative for edema or tenderness General Extremity: Negative for edema Neuro Neuro Narrative: Bilateral decorticate posturing. Skin no rashes or lesions noted MDM MDM MDM Narrative Medical decision making narrative: Patient arrives receiving assisted ventilation from EMS. Patient does have 100% by pulse oximetry. Patient is breathing on her own so BVM was terminated. Patient does appear to have hippus as well as posturing. It was thought that she was having a seizure. Given 2 mg of IV Ativan. CT brain negative. Chest x-ray interpreted by myself shows no evidence of traumatic injury, infiltrate, cardiomegaly. Leukocytosis and lactic acidosis consistent with seizure activity. On reevaluation at 2130 nonrebreather was removed and patient maintains her saturations. Patient did have a postictal period but then returned to her baseline and will follow commands. Spoke with hospitalist who will admit the patient for further treatment and evaluation. Lab Data Attestation: I reviewed the patient's lab results. Labs: Laboratory Results - last 24 hr 08/30/20 08/30/20 08/30/20 20:25 20:25 20:25 WBC 18.6 H RBC 3.99 L Hgb 12.0 Hct 36.1 L MCV 90.5 MCH 30.1 MCHC 33.2 RDW Std Deviation 37.4 RDW Coeff of Garrett 11.2 L Plt Count 273 MPV 9.0 Immature Gran % (Auto) 0.800 Neut % (Auto) 75.2 H Lymph % (Auto) 17.6 L [place] % (Auto) 5.6 Eos % (Auto) 0.5 Baso % (Auto) 0.3 Absolute Neuts (auto) 14.0 H Absolute Lymphs (auto) 3.28 Nucleated RBC % 0 PT 12.7 INR 1.0 APTT 21.3 L Sodium 136 Potassium 3.4 L Chloride 102 Carbon Dioxide 20.0 L Anion Gap 14 BUN 13 Creatinine 0.94 Estim Creat Clear Calc 79.46 Est GFR (MDRD) Af Amer 90 Est GFR (MDRD) Non-Af 75 BUN/Creatinine Ratio 13.8 Glucose 146 H Lactic Acid Calcium 8.9 Total Bilirubin 0.50 AST 11 L ALT 15 Alkaline Phosphatase 47 Troponin I < 0.015 Total Protein 7.1 Albumin 3.8 Globulin 3.3 Albumin/Globulin Ratio 1.2 Urine Color Urine Clarity Urine pH Ur Specific [place] Urine Protein Urine Glucose (UA) Urine Ketones Urine Occult Blood Urine Nitrite Urine Bilirubin Urine Urobilinogen Ur Leukocyte Esterase Urine RBC Urine WBC Ur Squamous Epith Cells Urine Bacteria Urine Mucus Urine Opiates Screen Urine Methadone Screen Ur Barbiturates Screen Ur Phencyclidine Scrn Ur Amphetamines Screen U Methamphetamin-MDMA U Benzodiazepines Scrn Urine Cocaine Screen U Cannabinoids Screen Ur Drug Screen Comment Blood Type Antibody Screen 08/30/20 08/30/20 08/30/20 20:25 20:33 20:55 WBC RBC Hgb Hct MCV MCH MCHC RDW Std Deviation RDW Coeff of [place] Plt Count MPV Immature Gran % (Auto) Neut % (Auto) Lymph % (Auto) [place] % (Auto) Eos % (Auto) Baso % (Auto) Absolute Neuts (auto) Absolute Lymphs (auto) Nucleated RBC % PT INR APTT Sodium Potassium Chloride Carbon Dioxide Anion Gap BUN Creatinine Estim Creat Clear Calc Est GFR (MDRD) Af Amer Est GFR (MDRD) Non-Af BUN/Creatinine Ratio Glucose Lactic Acid 5.0 H* Calcium Total Bilirubin AST ALT Alkaline Phosphatase Troponin I Total Protein Albumin Globulin Albumin/Globulin Ratio Urine Color Yellow Urine Clarity Clear Urine pH 6.5 Ur Specific [place] 1.015 Urine Protein 100 H Urine Glucose (UA) Normal Urine Ketones 15 H Urine Occult Blood 50 H Urine Nitrite Negative Urine Bilirubin Negative Urine Urobilinogen 1 H Ur Leukocyte Esterase 25 H Urine RBC 0-5 SEEN Urine WBC 0-5 SEEN Ur Squamous Epith Cells 0-5 SEEN Urine Bacteria 0 SEEN Urine Mucus 1+ Urine Opiates Screen Urine Methadone Screen Ur Barbiturates Screen Ur Phencyclidine Scrn Ur Amphetamines Screen U Methamphetamin-MDMA U Benzodiazepines Scrn Urine Cocaine Screen U Cannabinoids Screen Ur Drug Screen Comment Blood Type A POSITIVE Antibody Screen NEGATIVE 08/30/20 20:55 WBC RBC Hgb Hct MCV MCH MCHC RDW Std Deviation RDW Coeff of [place] Plt Count MPV Immature Gran % (Auto) Neut % (Auto) Lymph % (Auto) [place] % (Auto) Eos % (Auto) Baso % (Auto) Absolute Neuts (auto) Absolute Lymphs (auto) Nucleated RBC % PT INR APTT Sodium Potassium Chloride Carbon Dioxide Anion Gap BUN Creatinine Estim Creat Clear Calc Est GFR (MDRD) Af Amer Est GFR (MDRD) Non-Af BUN/Creatinine Ratio Glucose Lactic Acid Calcium Total Bilirubin AST ALT Alkaline Phosphatase Troponin I Total Protein Albumin Globulin Albumin/Globulin Ratio Urine Color Urine Clarity Urine pH Ur Specific [place] Urine Protein Urine Glucose (UA) Urine Ketones Urine Occult Blood Urine Nitrite Urine Bilirubin Urine Urobilinogen Ur Leukocyte Esterase Urine RBC Urine WBC Ur Squamous Epith Cells Urine Bacteria Urine Mucus Urine Opiates Screen NEGATIVE Urine Methadone Screen NEGATIVE Ur Barbiturates Screen NEGATIVE Ur Phencyclidine Scrn NEGATIVE Ur Amphetamines Screen NEGATIVE U Methamphetamin-MDMA NEGATIVE U Benzodiazepines Scrn NEGATIVE Urine Cocaine Screen NEGATIVE U Cannabinoids Screen NEGATIVE Ur Drug Screen Comment Blood Type Antibody Screen Radiography Chest X-Ray - ED: 1 View, Read by ED Physician, Read by Radiologist and Normal Diagnostic Testing: Radiology Impression Brain CT 08/30/20 20:28 IMPRESSION: Normal unenhanced CT scan of the brain. MRI may be helpful for further evaluation Electronically Signed: Dante Morrow MD at 21:09 EDT , Service support , Chest X-Ray 08/30/20 21:10 IMPRESSION: No acute cardiopulmonary pathology. Electronically Signed: Dante Morrow MD at 21:38 EDT , Service support , Rhythm Strip Rhythm Strip: Sinus Rhythm Rate: 97 Ectopy: None EKG Initial EKG: Attestation: I personally reviewed and interpreted this EKG as follows: Interpretation: Sinus Rhythm, No Acute Injury Pattern and Non-Specific ST Changes Comments: Normal sinus rhythm at 97 bpm. MN interval 140 ms. QTC of 447 ms. Critical Care Time Critical Care Time: Yes Critical care time (excluding procedures): 30-74 minutes (38) Discharge Plan Triage Chief Complaint: Neuro S/Sx ED Provider: Vince Dumont Dx/Rx/DC Orders Clinical Impression: Seizure, Vaginal bleeding Prescriptions: No Action misoprostol 200 mcg Tablet 200 mcg PO DAILY PRN RF: 0 Primary Care Provider: Care Physician,No Primary Referrals: Care Physician,No Primary [Primary Care Provider] - Disposition Disposition: Acute Care Hospital [facility]
[2020-08-30 22:00] LABS: Bedside Glucose 120 mg/dL (70-110)
--- NOTE | 2020-08-30 22:00 | NURSING ---
Per Dr Dumont we are not doing the 2L fluids for sepsis because positve results are related to the seizure and not infection.
[2020-08-30 22:18] LABS: Magnesium 1.7 mg/dL (1.6-2.6); Thyroid Stim Hormone (TSH) 8.59 uIU/mL (0.358-3.74)
[2020-08-30] MEDS: levETIRAcetam IV 1,000 MG/100 ML BAG 400 MG IV (22:47)
--- NOTE | 2020-08-30 22:55 | ED.RN ---
Office Spec in and talking with and patient. This nurse walked in and reports she just told him she feels like she is going to pass out. Patient looks pale, VS are 103/59. 100p, 100% RA and 24 R. Patient then unresponsive and fingers feel cool, BP dropped approc 69/54 and fluids restarted wide open with pressure bag and HOB down. BP started to come back but patient continued to be undresponsive with seizure activity for approx 10 minutes. SHe is responsive at this time and VS are 123/68, 116, 100RA, 23 resp
--- NOTE | 2020-08-30 23:11 | ED.RN ---
Dr Dumont aware patient still has no urine output
--- NOTE | 2020-08-30 23:16 | ED.RN ---
Dr Burgoss aware still no urine output, No kinks noted. Will monitor and push fluids
[2020-08-30] MEDS: 0.9% Normal Saline 1,000 ML 500 ML IV (23:40)
[2020-08-31 00:10] VITALS: BP 103/54; PULSE 110; RESP 14; TEMP 36.6; O2SAT 98
[2020-08-31 00:21] VITALS: BP 103/54; PULSE 110; RESP 20; TEMP 36.6; O2SAT 97
--- NOTE | 2020-08-31 00:29 | ED.RN ---
Per JACQUELINE Braun the information that the 6mg of ativan were given was incorrect and the patient had 2mg for the first episode and a total of 4mg the second epsiode for a total of 6mg for the stay in the er
[2020-08-31 00:37] LABS: Reflex Lactate? Y
== END 2020-08-31 00:31 | disposition short-term general hospital (02) ==
LOC: ED 21:48 → PCU 23:57
PROVIDERS: Nurse Practitioner Family; Emergency Provider Emergency Medicine; Visit Provider Family Medicine
DX: R56.9 Unspecified convulsions (principal); O03.9 Complete or unspecified spontaneous abortion without complication; H57.09 Other anomalies of pupillary function; I95.9 Hypotension, unspecified; E87.2 Acidosis; E87.6 Hypokalemia; R73.9 Hyperglycemia, unspecified; D72.829 Elevated white blood cell count, unspecified
CPT/HCPCS: 70450; 71045; 80053; 80307; 81001; 82077; 82962; 83605; 83735; 84443; 84484; 85025; 85610; 85730; 86850; 86900; 86901; 93005; 96361; 96365; 96375; 96376; 99285; J7030; J7040; J7050; A4216

== ENCOUNTER → 2021-03-08 | Outpatient (CLI) | payer BC, MEDICAID, SELFPAY ==
[2021-03-08 10:31] LABS: Absolute Lymphocyte Count 2.23 X10^3/uL (0.83-4.51); Basophil# 0.04 X10^3/uL; Basophil% 0.4 % (0-1); Eosinophils% 0.9 % (0-5); Hematocrit 37.5 % (37-47); Hemoglobin 12.7 g/dL (12.0-15.0); Lymphocyte # 2.23 X10^3/ul (0.83-4.51); Lymphocyte % 20.1 % (19-41); Mean Corp Hgb Conc 33.9 g/dL (32-36); Mean Corpuscular Hgb 29.9 pg (27.0-32.0); Mean Corpuscular Volume 88.2 fL (81-99); Monocyte% 4.5 % (0-10); NRBC Flagged by Analyzer 0 % (0-5); Neutrophil # 7.98 X10^3/uL (2.7-7.7); Neutrophil % 71.7 % (47-70); Platelet Count 355 K/mm3 (150-450); RBC Distribution Width CV 11.5 % (11.6-14.6); RBC Distribution Width SD 36.8 fl (35.1-43.9); Red Blood Count 4.25 M/mm3 (4.2-5.4); White Blood Count 11.1 K/mm3 (4.4-11.0)
[2021-03-08 11:46] LABS: HIV - WCH Non-Reactive (Nonreactive); Hepatitis B Surface Antigen Non-Reactive (Nonreactive); Hepatitis C Antibody Non-Reactive (Nonreactive); Syphilis Antibodies Non-reactive
[2021-03-08 16:25] LABS: Amphetamine Urine VISTA NEGATIVE (<1000 ng/mL); Barbiturate Urine VISTA NEGATIVE (< 200 ng/mL); Benzodiazepine Urine VISTA NEGATIVE (< 200 ng/mL); Cocaine Urine VISTA NEGATIVE (< 300 ng/mL); Ecstacy Urine VISTA NEGATIVE (< 500 ng/mL); Methadone Urine VISTA NEGATIVE (< 300 ng/mL); PCP Urine VISTA NEGATIVE (< 25 ng/mL); THC Urine VISTA NEGATIVE (< 50 ng/mL); Vista UDS pH Range 6
[2021-03-13 19:06] LABS: Chlamydia By Nucleic Acid AMP Negative (Negative)
[2021-03-14 16:42] LABS: Gonococcus By Nucleic Acid AMP Negative (Negative)
[2021-03-15 19:46] LABS: HPV Reflexed? NOT INDICATED
== END | disposition home or self-care (01) ==
LOC: PAVLAB 15:51 → LABSPEC 15:51
PROVIDERS: PCP Preventive Medicine Occupational Medicine; Referring Provider Obstetrics & Gynecology; Visit Provider Obstetrics & Gynecology
DX: Z34.80 Encounter for supervision of other normal pregnancy, unspecified trimester (principal)
CPT/HCPCS: 36415; 80307; 85025; 86703; 86762; 86780; 86803; 86850; 86900; 86901; 87077; 87086; 87088; 87186; 87340; 87491; 87591; 88175; G0145

== ENCOUNTER → 2021-04-04 | Outpatient (CLI) | payer BC, MEDICAID, SELFPAY | END | disposition home or self-care (01) | LOC: LABSPEC 12:05 | PROVIDERS: PCP Preventive Medicine Occupational Medicine; Visit Provider Obstetrics & Gynecology | DX: O23.40 Unspecified infection of urinary tract in pregnancy, unspecified trimester (principal); Z3A.00 Weeks of gestation of pregnancy not specified | CPT/HCPCS: 87086; 87088 ==

== ENCOUNTER 2021-05-04 12:08 | Outpatient (CLI) | payer BC, MEDICAID, SELFPAY ==
[2021-05-04 13:28] LABS: Thyroid Stim Hormone (TSH) 1.93 uIU/mL (0.358-3.74)
== END 2021-05-04 23:59 | disposition short-term general hospital (02) ==
LOC: LAB 12:09
PROVIDERS: PCP Preventive Medicine Occupational Medicine; Visit Provider Obstetrics & Gynecology
DX: R94.6 Abnormal results of thyroid function studies (principal)
CPT/HCPCS: 36415; 84443

== ENCOUNTER 2021-07-17 13:36 | Outpatient (CLI) | payer BC, MEDICAID, SELFPAY ==
[2021-07-17 14:17] LABS: Absolute Neutrophil Count 9.5 X10^3/uL (2.0-7.7); Basophil# 0.05 X10^3/uL; Basophil% 0.4 % (0-1); Eosinophil# 0.15 X10^3/uL; Eosinophils% 1.1 % (0-5); Hematocrit 33.3 % (37-47); Lymphocyte % 16.5 % (19-41); Mean Corpuscular Hgb 29.8 pg (27.0-32.0); Mean Corpuscular Volume 90.2 fL (81-99); Mean Platelet Vol. 8.4 fl (6.2-12.0); Monocyte# 0.88 X10^3/uL; Monocyte% 6.6 % (0-10); NRBC Flagged by Analyzer 0 % (0-5); Neutrophil # 9.52 X10^3/uL (2.7-7.7); Neutrophil % 71.2 % (47-70); Platelet Count 241 K/mm3 (150-450); RBC Distribution Width CV 12.4 % (11.6-14.6); RBC Distribution Width SD 40.9 fl (35.1-43.9); Red Blood Count 3.69 M/mm3 (4.2-5.4); White Blood Count 13.4 K/mm3 (4.4-11.0)
[2021-07-17 14:39] LABS: Glucose Challenge Gest 1H 50g 104 mg/dL (70-140)
== END 2021-07-17 23:59 | disposition home or self-care (01) ==
PROVIDERS: PCP Preventive Medicine Occupational Medicine; Referring Provider Nurse Practitioner Women's Health; Visit Provider Nurse Practitioner Women's Health
DX: Z34.90 Encounter for supervision of normal pregnancy, unspecified, unspecified trimester (principal); Z3A.25 25 weeks gestation of pregnancy
CPT/HCPCS: 36415; 82950; 85025

== ENCOUNTER → 2021-09-15 | Outpatient (CLI) | payer BC, MEDICAID, SELFPAY | END | disposition home or self-care (01) | LOC: LABSPEC 16:59 | PROVIDERS: PCP Preventive Medicine Occupational Medicine; Visit Provider Obstetrics & Gynecology | DX: Z34.80 Encounter for supervision of other normal pregnancy, unspecified trimester (principal); Z3A.00 Weeks of gestation of pregnancy not specified | CPT/HCPCS: 87081 ==

== ENCOUNTER 2021-09-25 23:50 | Inpatient (IN) | payer BC, MEDICAID, SELFPAY ==
[2021-09-25 21:34] VITALS: PULSE 92; O2SAT 96
[2021-09-25 21:35] VITALS: TEMP 36.8
[2021-09-25 21:38] VITALS: BP 119/66; PULSE 97; O2SAT 92
[2021-09-25 21:43] VITALS: TEMP 36.8
[2021-09-25 21:51] VITALS: BMI 31.3
[2021-09-26] VITALS (50 sets, daily range): BP systolic 90–125; BP diastolic 46–71; PULSE 53–99; RESP 16–18; TEMP 35.9–37.3; O2SAT 92–98
[2021-09-26] MEDS: Lactated Ringers 1,000 ML 200 ML IV ×2 (00:23→05:47)
[2021-09-26 00:34] LABS: Absolute Lymphocyte Count 2.44 X10^3/uL (0.83-4.51); Absolute Neutrophil Count 11.6 X10^3/uL (2.0-7.7); Basophil# 0.06 X10^3/uL; Basophil% 0.4 % (0-1); Eosinophil# 0.12 X10^3/uL; Eosinophils% 0.8 % (0-5); Hematocrit 33.3 % (37-47); Hemoglobin 11.1 g/dL (12.0-15.0); Lymphocyte # 2.44 X10^3/ul (0.83-4.51); Lymphocyte % 15.4 % (19-41); Mean Corp Hgb Conc 33.3 g/dL (32-36); Mean Corpuscular Hgb 29.1 pg (27.0-32.0); Mean Corpuscular Volume 87.2 fL (81-99); Mean Platelet Vol. 8.6 fl (6.2-12.0); Monocyte# 1.04 X10^3/uL; Monocyte% 6.5 % (0-10); NRBC Flagged by Analyzer 0 % (0-5); Neutrophil # 11.64 X10^3/uL (2.7-7.7); Neutrophil % 73.2 % (47-70); Platelet Count 219 K/mm3 (150-450); RBC Distribution Width CV 13.2 % (11.6-14.6); RBC Distribution Width SD 41.2 fl (35.1-43.9); Red Blood Count 3.82 M/mm3 (4.2-5.4); White Blood Count 15.9 K/mm3 (4.4-11.0)
[2021-09-26] MEDS: LACTATED RINGERS 500 ML 999 ML IV (01:59)
[2021-09-26] MEDS: fentaNYL-bupivacaine (epidural) 100 ML BAG EPIDURAL (02:46)
--- NOTE | 2021-09-26 04:08 | HP.PCM.OB_ITS ---
HPI - General General Date of Admission: 09/25/21 HPI Narrative SARAVANAN BLAKE, is a 31 F who presents with regular ctx no vb lof admits good fm now made change from 3-4 cm. Maternal Data Information STEFANIA Calculator Estimated Delivery Date Method Current WG Current Estimate 10/07/21 LMP (Certain) 38w 3d Other Estimates 10/05/21 Ultrasound #1 38w 5d PFSH PFSH Medical History (Updated 09/26/21 @ 04:[address] Luzmaria Horan MD) Anxiety Anxiety and depression Depression Low-lying placenta in second trimester MVP (mitral valve prolapse) Positive GBS test hemorrhage Home Medications Prenatabs FA 1 tab PO DAILY 08/20/18 [History Last Taken 09/25/21 09:00] escitalopram oxalate 5 mg tablet 10 mg PO DAILY tab 06/01/21 [History Last Taken 09/25/21 09:00] omeprazole 20 mg capsule,delayed release 20 mg PO DAILY 30 Days #30 cap 09/15/21 [Rx Last Taken Unknown] Allergy/AdvReac Type Severity Reaction Status Date / Time dicyclomine Allergy Mild SOB, hives Verified 09/25/21 21:54 misoprostol Allergy Mild hemmorrhage Verified 09/25/21 21:54 lactose AdvReac Abd Verified 09/25/21 21:54 cramps/diarrhea Family History Father Hypertension Mother Hypertension Grandmother CAD (coronary artery disease) Mother Diabetes Father Sarcoidosis Surgical History (Updated 09/26/21 @ 00:09 by Nuria Montes) H/O dilation and curettage Social History household members: family number of children: 3 Smoking Status: Never smoker alcohol intake: never substance use type: does not use seatbelt use: always do you feel safe at home: Yes additional social history: - Cyril History 5 Elective abortions Hx Para 3 Spontaneous abortions 1 Hx # Term Pregnancies Ectopic pregnancies Hx # Pregnancies Multiple births # of living children 3 Past Pregnancies Del. Date Name GA/Weeks Outcome Route Bth Weight Gen Labor Lgth Anesthesia Del Locatn Provider FOB 12/13/12 Chika 39 live - full term 6lbs 6oz Female 11 hours epidural [facility] Dr. Gaurang Nam 03/23/14 Manohar 39 live - full term 6lbs 5oz Male 5 h ours epidural [facility] Dr. Gaurang Nam 08/20/18 Maria Fernanda 39 live - full term 6lbs 6oz Female 5 hours epidural [facility] Dr. Gaurang Nam Delivery Date: 12/13/12 no complications Trina Villarreal Delivery Date: 03/23/14 no complications Trina Villarreal Delivery Date: 08/20/18 no complications Trina Villarreal Visit Details Expected Delivery Route/Plan Labor Preferences- CB/BF classes: no labor support person: Cyril labor intervention preferences: pain management options preferred: epidural cut cord/dad catch: cord : yes PP control planned: considering pp BS discussed possible routes of delivery and associated risks: [] special requests: [] Plans Covid status: declined Flu vaccine: decline Tdap vaccine: decline Rhogam: NA LARC form signed: yes movement and labor precautions reviewed. Problem list reviewed and updated with the most current plan of care details and appropriate orders placed. Relevant counseling for the gestational age provided. Continue routine care and follow up unless otherwise noted in visit notes/problem list details OB Flowsheet Initial Weight: Not Recorded Date -?-?-?-?-?-?-?-?--?-?-?-?- EGA Weight BP Urine Prot -?-?-?-?-?-?-?-?-?-?-?-?- Glucose FHR FuHt Pres Dilation -?-?-?-?-?-?-?-?-?-?-?-?- Effaced St Visit Note 03/08/21 -?-?-?-?-?-?-?-?-?-?-?-?- 9w 4d 154 lb 8 oz 130/70 -?-?-?-?-?-?-?-?-?-?-?-?- 180 -?-?-?-?-?-?-?-?-?-?-?-?- JV- CRL consiste nt with LMP. STEFANIA 10/07/2021 04/04/21 -?-?-?-?-?-?-?-?-?-?-?-?- 13w 3d 155 lb 6 oz 120/68 Nega tive -?-?-?-?-?-?-?-?-?-?-?-?- Negative 165 -?-?-?-?-?-?-?-?-?-?-?-?- JV- no complaint s today. anatomy ultrasound ordered. 05/04/21 -?-?-?-?-?-?-?-?-?-?-?-?- 17w 5d 153 lb 4 oz 130/70 Nega tive -?-?-?-?-?-?-?-?-?-?-?-?- Negative 145 -?-?-?-?-?-?-?-?-?-?-?-?- JV- abnormal thy roid test from august 2020 needs followed up. (not done through us) no lof, vaginal bleeding, or dec fm. 06/01/21 -?-?-?-?-?-?-?-?-?-?-?-?- 21w 5d 163 lb 2 oz 138/70 Nega tive -?-?-?-?-?-?-?-?-?-?-?-?- Negative 165 -?-?-?-?-?-?-?-?-?-?-?-?- JV- no lof, vagi nal bleeding, or dec fm low lying placenta. pelvic rest encoruaged. rpt 28 weeks . 06/29/21 -?-?-?-?-?-?-?-?-?-?-?-?- 25w 5d 167 lb 120/80 Negative -?-?-?-?-?-?-?-?-?-?-?-?- Negative 150 -?-?-?-?-?-?-?-?-?-?-?-?- SM- no vb lof go od fm no regular ctx some lower pevlic pressure 07/17/21 -?-?-?-?-?-?-?-?-?-?-?-?- 28w 2d 172 lb 4 oz 126/60 Nega tive -?-?-?-?-?-?-?-?-?--?-?-?- Negative 151 -?-?-?-?-?-?-?-?-?-?-?-?- MH-no VB, LOF. G ood FM. 28 wk labs larc. Melendez tdap. 08/01/21 -?-?-?-?-?-?-?-?-?-?-?-?- 30w 3d 172 lb 4 oz 110/70 Nega tive -?-?-?-?-?-?-?-?-?-?-?-?- Negative 156 30 -?-?-?-?-?-?-?-?-?-?-?-?- JV- no complaint s today. need records of placenta placement and echo. pt was told that the placenta moved an the baby has a small VSD. 08/16/21 -?-?-?-?-?-?-?-?-?-?-?-?- 32w 4d 175 lb 4 oz 120/78 Nega tive -?-?-?-?-?-?-?-?-?-?-?-?- Negative 143 32 -?-?-?-?-?-?-?-?-?-?-?-?- JV- placenta no longer low lying. s/p echo showing tiny VSD. pt was told by cardiology that this will close and no further follow up is needed 09/01/21 -?-?-?-?-?-?-?-?-?-?-?-?- 34w 6d 178 lb 122/82 -?-?-?-?-?-?-?-?-?-?-?-?- 145 34 -?-?-?-?-?-?-?-?-?-?-?-?- SM- no vb lof go od fm no regular ctx 09/15/21 -?-?-?-?-?-?-?-?-?-?-?-?- 36w 6d 180 lb 118/75 Negative -?-?-?-?-?-?--?-?-?-?-?-?- Negative 147 37 Cephalic 1 -?-?-?-?-?-?-?-?-?-?-?-?- 50 -3 JV- no lof , vaginal bleeding, or dec fm. No complaints. 09/22/21 -?-?--?-?-?-?-?-?-?-?-?-?- 37w 6d 181 lb 8 oz 126/74 Nega tive -?-?-?-?-?-?-?-?-?-?-?-?- Negative 155 37 Cephalic 3 -?-?-?-?-?-?-?-?-?-?-?-?- 80 -2 JV- no lof , vaginal bleeding, or dec fm 09/25/21 -?-?-?-?-?-?-?-?-?-?-?-?- 38w 2d 182 lb 9.6 oz 119/66 115/57 124/67 125/71 109/58 110/59 105/55 106/57 110/57 112/58 111/59 113/56 -?-?-?-?-?-?-?-?-?-?-?-?- -?-?-?-?-?-?-?-?-?-?-?-?- NST FHR Rate Baby A Baseline: 140 Variability:: Moderate Accelerations:: 15 x 15 Decelerations:: None NST Reactive:: Yes FHR Category:: Category I Uterine Activity:: q3-5 ROS Constitutional Constitutional: Reports systems reviewed and no addt'l complaints, except as documented ENT HEENT: Reports systems reviewed and no addt'l complaints, except as documented Cardiovascular Cardiovascular: Reports systems reviewed and no addt'l complaints, except as documented Respiratory/Chest Respiratory/Chest: Reports systems reviewed and no addt'l complaints, except as documented Gastrointestinal Gastrointestinal: Reports systems reviewed and no addt'l complaints, except as documented and nausea; Denies abdominal pain Genitourinary Genitourinary: Reports systems reviewed and no addt'l complaints, except as documented, contractions Details: present and frequency (regular ) and movement Details: present Musculoskeletal Musculoskeletal: Reports systems reviewed and no addt'l complaints, except as documented Integumentary Integumentary: Reports as per HPI Neurologic Neurologic: Reports systems reviewed and no addt'l complaints, except as documented Endocrine Endocrinology: Reports systems reviewed and no addt'l complaints, except as documented Vital Signs Vital Signs Vital Signs: 09/25/21 21:34 09/25/21 21:35 09/25/21 21:38 Temperature 98.2 F Temperature Source Pulse Rate 92 97 Blood Pressure 119/66 BP Systolic 119 BP Diastolic 66 Pulse Ox 96 92 09/25/21 21:43 09/26/21 01:08 09/26/21 01:09 Temperature 98.3 F 98.1 F Temperature Source Temporal Pulse Rate 85 Blood Pressure 115/57 L BP Systolic 115 BP Diastolic 57 Pulse Ox 95 09/26/21 02:27 09/26/21 02:32 09/26/21 02:33 Temperature Temperature Source Pulse Rate 96 92 Blood Pressure 124/67 H BP Systolic 124 BP Diastolic 67 Pulse Ox 98 98 09/26/21 02:37 09/26/21 02:38 09/26/21 02:42 Temperature Temperature Source Pulse Rate 93 94 Blood Pressure 125/71 H BP Systolic 125 BP Diastolic 71 Pulse Ox 97 97 09/26/21 02:44 09/26/21 02:47 09/26/21 02:48 Temperature Temperature Source Pulse Rate 99 98 91 Blood Pressure 109/58 L 110/59 L BP Systolic 109 110 BP Diastolic 58 59 Pulse Ox 96 09/26/21 02:52 09/26/21 02:53 09/26/21 02:57 Temperature Temperature Source Pulse Rate 97 Blood Pressure 105/55 L BP Systolic 105 BP Diastolic 55 Pulse Ox 96 96 09/26/21 02:58 09/26/21 03:02 09/26/21 03:04 Temperature Temperature Source Pulse Rate 89 91 96 Blood Pressure 106/57 L 110/57 L BP Systolic 106 110 BP Diastolic 57 57 Pulse Ox 96 09/26/21 03:05 09/26/21 03:07 09/26/21 03:08 Temperature 98.4 F Temperature Source Pulse Rate 90 Blood Pressure 112/58 L BP Systolic 112 BP Diastolic 58 Pulse Ox 96 09/26/21 03:10 09/26/21 03:12 09/26/21 03:13 Temperature Temperature Source Pulse Rate 88 90 Blood Pressure 111/59 L BP Systolic 111 BP Diastolic 59 Pulse Ox 94 96 09/26/21 03:55 Temperature 99.1 F Temperature Source Temporal Pulse Rate 82 Blood Pressure 113/56 L BP Systolic 113 BP Diastolic 56 Pulse Ox 97 Weight Weight: 182 lb 9.6 oz Body Mass Index (BMI) 31.3 Physical Exam Const alert, oriented x3 and healthy appearing Constitutional Narrative: uncomfortable with contractions HEENT normocephalic and moist oral mucous membranes Head and Scalp: atraumatic Neck full ROM, no lymphadenopathy, supple and thyroid normal General: trachea midline Thyroid: thyroid normal Lymph Lymphatic: no lymphadenopathy noted Chest inspection of chest normal Resp normal respiratory effort Cardio regular rate GI normal to inspection, nondistended, normoactive bowel sounds, soft to palpation and non-tender Inspection: gravid external exam normal Bimanual Exam - Vag & Uterus: uterus non-tender Manual OB Exam: estimated gestational size appropriate, presentation cephalic, dilated, effaced and station Extremity normal to inspection General Extremity: Negative for edema Skin no rashes or lesions noted Neuro deep tendon reflexes 2+ bilaterally Motor Exam: strength 5/5 throughout and clonus absent Psych mental status grossly normal Labs Labs Labs: Blood Type A POSITIVE Antibody Screen NEGATIVE Hct 33.3 % (37-47) L Hgb 11.1 g/dL (12.0-15.0) L Pap Smear Negative Syphilis Total Ab Non-reactive Rubella IgG Antibody 44.5 IU/mL Hep Bs Antigen Non-Reactive (Nonreactive) Chlamydia DNA (STEVEN) Negative (Negative) Neisseria gonorrhoeae DNA (STEVEN) Negative (Negative) HIV 1&2 Antibody Non-Reactive (Nonreactive) Glucose 1 Hr 50 gm 104 mg/dL (70-140) Group B Strep DNA Negative (Negative) Rhogam given: No Miscellaneous Test Assessment & Plan (1) Anxiety and depression: COMMENT: previously on Lexapro- restarting due to anxiety that is worsening this . Had a loss recently (1st trimester) (2) ventricular septal defect affecting antepartum care of mother: COMMENT: tiny vsd on echo- was told will closed spontaneously and will not require follow up. (3) Contraceptive education: COMMENT: title 19 signed for desired tubal ligation (4) Abnormal thyroid blood test: COMMENT: 8.5 in august 2020, repeating today 05/04/21 (normal follow up level) (5) UTI (urinary tract infection), affecting care of mother, antepartum: COMMENT: treated 03/10. needs urine cx at next appointment. (6) Supervision of other normal : COMMENT: PRR STEFANIA: 10/07/21 boy PC: Leo Farr McKenzie Spouse: Cyril (7) : QUALIFIERS: Weeks of gestation: 37 weeks Qualified Code(s): Z3A.37 - 37 weeks gestation of COMMENT: GBS negative, genetic, ntd, and carrier declined. Anatomy normal other than low lying placenta (8) H/O miscarriage, currently : COMMENT: Patient hemorrhage and was transferred to [facility] ICU; received 2 units of blood; admitted for 3 days NEURO ICU possible seizure (9) Active labor at term: PLAN: Patient presents IAL, plan expectant management for , pitocin/AROM PRN if needed. Pain management: plans epidural. GBS neg. Management of any complications: none [facility] and made any clinically relevant updates.
--- NOTE | 2021-09-26 06:48 | OP.PCM_ITS ---
Assessment & Plan (1) Anxiety and depression: COMMENT: previously on Lexapro- restarting due to anxiety that is worsening this . Had a loss recently (1st trimester) (2) ventricular septal defect affecting antepartum care of mother: COMMENT: tiny vsd on echo- was told will closed spontaneously and will not require follow up. (3) Contraceptive education: COMMENT: title 19 signed for desired tubal ligation (4) UTI (urinary tract infection), affecting care of mother, antepartum: COMMENT: treated 03/10. needs urine cx at next appointment. (5) Abnormal thyroid blood test: COMMENT: 8.5 in august 2020, (normal follow up level) (6) Supervision of other normal : COMMENT: PRR STEFANIA: 10/07/21 boy PC: Leo Farr McKenzie Spouse: Cyril (7) : QUALIFIERS: Weeks of gestation: 37 weeks Qualified Code(s): Z3A.37 - 37 weeks gestation of COMMENT: GBS negative, genetic, ntd, and carrier declined. Anatomy normal other than low lying placenta (8) H/O miscarriage, currently : COMMENT: Patient hemorrhage and was transferred to [facility] ICU; received 2 units of blood; admitted for 3 days NEURO ICU possible seizure (9) Active labor at term: Maternal Data Information STEFANIA Calculator Estimated Delivery Date Method Current WG Current Estimate 10/07/21 LMP (Certain) 38w 3d Other Estimates 10/05/21 Ultrasound #1 38w 5d Vaginal Delivery Operative Information Date of Procedure: 09/26/21 Pre-Operative Diagnosis: IAL Post-Operative Diagnosis: same Surgery / Procedure Performed: Spontaneous Vaginal Delivery Type of Anesthesia: Epidural Special Medications: none Estimated Blood Loss: 100 Fluids Replaced: crystalloid Findings Description of Procedure: Patient began pushing and delivered the head in the PHANI presentation. The head was delivered atraumatically and a loose nuchal cord ?1 was identified and the delivered through without complication. The anterior and posterior shoulders delivered without complication followed by the rest of the and the infant was placed on the maternal abdomen. Delayed cord clamping was employed for approximately 60 seconds. Cord was clamped and cut and gentle traction was applied to the cord and the placenta delivered spontaneously immediately following it was noted to be intact with three-vessel cord. The perineum and vagina were inspected and noted to have no laceration. EBL was 100 cc. Patient and tolerated delivery well. Presentation: PHANI Amniotic Membrane Rupture Type: Artificial Amniotic Fluid Description: Clear Placental Delivery Description: Spontaneous Placenta Disposition: [facility] Cord Vessel Description: 3 Vessels Cord Entanglement: None Delayed Cord Clamping: Yes Post Vaginal Delivery Medications Given After Delivery: IV Pitocin Episiotomy Description: None Laceration: None Complication Complications: None Procedures Urinary/Genital 52xxx-59xxx: 16909 Vaginal Delivery+ Care([facility])
--- NOTE | 2021-09-26 06:49 | PCM.DC ---
Discharge Instructions Diet Discharge Diet: No restrictions Activity Discharge Activity: Return to Normal Activity, May Not Drive (while taking narcotic pain medications.) and May Shower May resume sexual activity in: 4-6 weeks Dressing / Incision Call your doctor if your incision/area has: Continuous Slow Oozing, Sudden Increased Bleeding, Increased Pain/ Swelling, Increased Redness and Foul Smelling Discharge Follow Up Care Please Follow Up With: Luzmaria Horan MD When: Call [phone] to make an appointment with your doctor in 6 weeks. If you had elevated blood pressure or 4th degree laceration, you will need to be seen in 2 weeks. Test Results: Test results from this visit will be discussed in further detail at your follow-up appointment, if applicable. Discharge Plan Admission Admit Date/Time: 09/25/21 23:50 Attending Provider: Luzmaria Horan Primary Care Provider: Giovanny Doyle Discharge Orders/Prescriptions Prescriptions: No Action escitalopram oxalate [Lexapro] 5 mg tablet 10 mg PO DAILY RF: 0 omeprazole 20 mg capsule,delayed release(DR/EC) 20 mg PO DAILY 30 Days Qty: 30 RF: 0 Prenatabs FA 1 TABLET tablet 1 tab PO DAILY RF: 0 Referrals / Follow Up: Giovanny Doyle DO [Primary Care Provider] - Disposition Disposition (needs filled in before D/C Order can be placed): Home, Self Care
[2021-09-26] MEDS: Oxytocin 30 units/NS 500 ml 30 UNITS/500 ML IV.SOLN 334 UNITS IV (07:25)
[2021-09-26] MEDS: Escitalopram Oxalate 10 MG Tablet PO (12:34)
[2021-09-27] VITALS (8 sets, daily range): BP systolic 109–118; BP diastolic 55–63; PULSE 69–74; RESP 14–16; TEMP 36.4–36.8; O2SAT 97
[2021-09-27] MEDS: Acetaminophen 500 MG Tablet 1000 MG PO (00:32)
--- NOTE | 2021-09-27 07:20 | PCM.PN.OB ---
Subjective Subjective Patient doing well without complaints. Tolerating PO. Ambulating and voiding without difficulty. feeding well. Denies chest pain, shortness of breath, calf pain/swelling, fevers, chills, lightheadedness. Objective Data Objective Data Vital Signs: Vital Signs Temp Pulse Resp BP Pulse Ox 97.7 F L 69 14 109/63 95 09/27/21 03:15 09/27/21 03:15 09/27/21 03:15 09/27/21 03:15 09/26/21 20:36 Oxygen Delivery Method Room Air Weight: 182 lb 9.6 oz Body Mass Index (BMI) 31.3 Intake & Output: Intake and Output for Last 24 Hours 09/25/21 09/26/21 09/27/21 23:59 23:59 23:59 Intake Total 2823.33 / 2823.33 Output Total 2350 / 2350 Balance 473.33 / 473.33 Lab / Micro Data Result Diagrams: 09/26/21 00:20 Micro: Microbiology 09/26/21 00:52 Nasal Secretion SARS-CoV-2 Antigen (Rapid) - Final ROS Constitutional Constitutional: Reports systems reviewed and no addt'l complaints, except as documented Cardiovascular Cardiovascular: Reports systems reviewed and no addt'l complaints, except as documented Respiratory/Chest Respiratory/Chest: Reports systems reviewed and no addt'l complaints, except as documented Gastrointestinal Gastrointestinal: Reports systems reviewed and no addt'l complaints, except as documented Physical Exam Const alert, oriented x3 and no apparent distress HEENT Head and Scalp: atraumatic Resp normal respiratory effort GI soft to palpation and non-tender Bimanual Exam - Vag & Uterus: uterus non-tender Uterus Palpation: uterus fundus firm (below Umbilicus) Assessment & Plan (1) Vaginal delivery: COMMENT: 38 IAL SM (2) Anxiety and depression: COMMENT: previously on Lexapro- restarting due to anxiety that is worsening this . Had a loss recently (1st trimester) PLAN: s/p PPD # 1 1. routine post delivery care 2. breast feeding- support given 3. rh positive 4. rubella immune
[2021-09-27] MEDS: Escitalopram Oxalate 10 MG Tablet PO (10:36)
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
== END 2021-09-27 13:45 | disposition home or self-care (01) | DRG 807 ==
LOC: WPOUT 23:54 → WP 23:54
PROVIDERS: Admitting Provider Obstetrics & Gynecology; PCP Preventive Medicine Occupational Medicine; Referring Provider Obstetrics & Gynecology; Visit Provider Obstetrics & Gynecology
DX: O99.824 Streptococcus B carrier state complicating childbirth (principal); Z37.0 Single live birth; O99.344 Other mental disorders complicating childbirth; F32.A Depression, unspecified; F41.9 Anxiety disorder, unspecified; O44.53 Low lying placenta with hemorrhage, third trimester; O69.81X0 Labor and delivery complicated by cord around neck, without compression, not applicable or unspecified; Z3A.37 37 weeks gestation of pregnancy; Z20.822 Contact with and (suspected) exposure to COVID-19
CPT/HCPCS: 59025; 59050; 85025; 86850; 86900; 86901; 87426; J7120

== ENCOUNTER → 2021-11-27 | Outpatient (CLI) | payer BC, MEDICAID, SELFPAY ==
--- NOTE | 2021-11-27 12:46 | MRI_ITS ---
STUDY: MRI RIGHT KNEE REASON FOR EXAM: Anterior right knee pain for about a year. TECHNIQUE: Standardized fat and water weighted pulse sequences were obtained in all 3 orthogonal planes. COMPARISON: Radiographs 11/09/2021. FINDINGS: Normal medial meniscus. Normal hyaline cartilage of the medial femorotibial compartment. Normal medial femoral condyle and tibial plateau. Normal medial collateral ligamentous complex (MCL). Normal distal semimembranosus, gracilis and semitendinosus tendons. Normal lateral meniscus. Normal hyaline cartilage of the lateral femorotibial compartment. Normal lateral femoral condyle and tibial plateau. Normal proximal tibiofibular articulation. Normal lateral collateral (fibular) ligament. Normal popliteus tendon. Normal biceps femoris tendon. Normal anterior cruciate ligament (ACL). Normal posterior cruciate ligament (PCL). Normal congruent patellofemoral articulation. Normal hyaline cartilage of the patellofemoral compartment. Normal medial and lateral patellar retinaculum. Normal quadriceps tendon. Normal patellar tendon. Normal Hoffa''s fat pad. There is no joint effusion. There is a thin medial patellar plica. The soft tissues are unremarkable. The otherwise visualized osseous structures are unremarkable. MRI/Lower Ext Joint Only (Routine) IMPRESSION: Unremarkable MRI of the right knee without demonstrated internal derangement. Electronically Signed: Cruz Wong MD at 16:53 EDT ,
== END | disposition home or self-care (01) ==
LOC: MRI 12:46
PROVIDERS: PCP Preventive Medicine Occupational Medicine
DX: M23.92 Unspecified internal derangement of left knee (principal)
CPT/HCPCS: 73721

== ENCOUNTER 2021-11-28 11:27 | Day surgery (SDC) | payer BC, MEDICAID, SELFPAY ==
[2021-11-27 13:32] LABS: Absolute Lymphocyte Count 2.76 X10^3/uL (0.83-4.51); Absolute Neutrophil Count 6.5 X10^3/uL (2.0-7.7); Basophil# 0.05 X10^3/uL; Basophil% 0.5 % (0-1); Eosinophil# 0.24 X10^3/uL; Eosinophils% 2.3 % (0-5); Hematocrit 43.3 % (37-47); Hemoglobin 14.1 g/dL (12.0-15.0); Lymphocyte # 2.76 X10^3/ul (0.83-4.51); Lymphocyte % 26.4 % (19-41); Mean Corp Hgb Conc 32.6 g/dL (32-36); Mean Corpuscular Hgb 29.1 pg (27.0-32.0); Mean Corpuscular Volume 89.3 fL (81-99); Mean Platelet Vol. 8.6 fl (6.2-12.0); Monocyte# 0.75 X10^3/uL; Monocyte% 7.2 % (0-10); NRBC Flagged by Analyzer 0 % (0-5); Neutrophil # 6.47 X10^3/uL (2.7-7.7); Platelet Count 305 K/mm3 (150-450); RBC Distribution Width CV 12.4 % (11.6-14.6); RBC Distribution Width SD 41.1 fl (35.1-43.9); Red Blood Count 4.85 M/mm3 (4.2-5.4); White Blood Count 10.4 K/mm3 (4.4-11.0)
--- NOTE | 2021-11-27 16:48 | PCM.HP.BLA ---
History and Physical MR#: [id number] Acct: [id number] Name:SARAVANAN FITZGERALD CASA Rep #: [id number] : 1990 ? ? Provider: Dr. Luzmaria Horan MD Age/Sex:? 31/F ? ? [place] [facility] [place] Status: Signed Intake Vital Signs ? 09/25/2220:51 11/09/2212:39 11/09/2212:40 Height 5 ft 4 in 5 ft 3 in 5 ft 4 in Weight: ? 161 lb ? BMI ? 28.5 ? BP ? 110/82 H ? 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 Anxiety Anxiety and depression Depression Low-lying placenta in second trimester MVP (mitral valve prolapse) Positive GBS test hemorrhage Surgical History? H/O dilation and curettage Family History? Father HypertensionMother HypertensionGrandmother CAD (coronary artery disease)Mother DiabetesFather Sarcoidosis Social History? household members:? family number of children:? 3 Smoking Status:? Never smoker alcohol intake:? never substance use type:? does not use seatbelt use:? always do you feel safe at home:? Yes additional social history:? - Cyril Pregancy History ? ? ? 5 ? Elective abortions ? Hx Para ? ? ? 3 ? Spontaneous abortions ? ? ? 1 Hx # Term Pregnancies ? Ectopic pregnancies ? Hx # Pregnancies ? Multiple births ? # of living children ? ? ? 4 Past Pregnancies Del. Date Name GA/Weeks Outcome Route Bth Weight Gen Labor Lgth Anesthesia Del Locatn Provider FOB 12/13/12 Chika 39 live - full term 6lbs 6oz Female 11 hours epidural [facility] Dr. Gaurang Nam 03/23/14 Manohar 39 live - full term 6lbs 5oz Male 5 hours epidural [facility] Dr. Gaurang Nam 08/20/18 Maria Fernanda 39 live - full term 6lbs 6oz Female 5 hours epidural [facility] Dr. Gaurang Nam 09/26/21 Eugene 38 live - full term ? Male ? epidural [facility] Luzmaria Royalappleregine Cyril Delivery Date: 12/13/12? Last Updated by: Trina Villarreal ? ? ? no complications Delivery Date: 03/23/14? Last Updated by: Trnia Villarreal ? ? ? no complications Delivery Date: 08/20/18? Last Updated by: Trina Villarreal ? ? ? no complications Delivery Date: 09/26/21? Last Updated by: Tammy Price ? ? ? see problem list for complications, IAL 38 SM Eugene Depression Screen PHQ-2/9 PHQ-2 Over the last 2 weeks, how often have you been bothered by any of the following problems? 1. Little interest or pleasure in doing things: not at all 2. Feeling down, depressed, or hopeless: not at all Total score: 0 Post HPI preop BS: Details: SARAVANAN BLAKE is a 31 year old who presents for her post visit. Feeding: Breast Menses resumed: No [employer] since delivery: No Emotional Support: Yes Last Pap:: 2020 ROS Const Reports system reviewed and no additional complaints, except as documented GI Reports system reviewed and no additional complaints, except as documented, Denies bloating, Denies constipation, Denies nausea and Denies vomiting Reports system reviewed and no additional complaints, except as documented, Denies abnormal vaginal bleeding, Denies pelvic pain, Denies sexual dysfunction, Denies urinary incontinence, Denies urinary hesitancy, Denies urinary urgency and Denies vaginal discharge Skin/Breast Reports system reviewed and no additional complaints, except as documented and Reports as per HPI Psych Reports as per HPI Exam Const General: cooperative, healthy appearing, comfortable and no acute distress HENMT Head: normal to inspection Neck Neck: normal visual inspection and no lymphadenopathy Thyroid: thyroid normal Chest Breast inspection: normal inspection of the breasts and normal inspection of the axillae Breast palpation: normal palpation of the breasts and normal palpation of the axillae Resp Effort & Inspection: normal respiratory effort GI Inspection: normal to inspection Palpation: soft, no hepatosplenomegaly and nontender General: bladder normal to palpation External Female Exam: normal external appearance and normal appearance of the urethra Urethra: normal appearance of the urethra Speculum Exam - Vagina: normal appearance of the vagina and normal vaginal discharge Speculum Exam - Cervix: normal appearance of the cervix Bimanual Exam- Vagina & Uterus: normal bimanual exam, uterine size normal, bladder normal to palpation, uterine shape normal and non-tender Bimanual Exam- Adnexa, other: normal adnexae and normal Pelvic Support: normal Skin General: no rashes or lesions noted Coding Level of Care Code No Charge Diagnoses care and examination? Z39.2 Sterilization? Z30.2 Assessment and Plan Assessment and Plan (1) care and examination: ?Status:?Acute (2) Sterilization: ?Status:?Acute ?Comment: plan lap BS Plan Cervical cancer screening: up to date Contraceptive plans: bs Complications: none Follow up for annual exams or sooner if indicated.MR#: [id number] Acct: [id number] Name:SARAVANAN FITZGERALD CASA Rep #: [id number] : 1990 ? ? Provider: Dr. Luzmaria Horan MD Age/Sex:? 31/F ? ? Location[place] [facility] [place] Status: Signed Intake Vital Signs ? 09/25/2220:51 11/09/2212:39 11/09/2212:40 Height 5 ft 4 in 5 ft 3 in 5 ft 4 in Weight: ? 161 lb ? BMI ? 28.5 ? BP ? 110/82 H ? 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 Anxiety Anxiety and depression Depression Low-lying placenta in second trimester MVP (mitral valve prolapse) Positive GBS test hemorrhage Surgical History? H/O dilation and curettage Family History? Father HypertensionMother HypertensionGrandmother CAD (coronary artery disease)Mother DiabetesFather Sarcoidosis Social History? household members:? family number of children:? 3 Smoking Status:? Never smoker alcohol intake:? never substance use type:? does not use seatbelt use:? always do you feel safe at home:? Yes additional social history:? - Cyril Pregancy History ? ? ? 5 ? Elective abortions ? Hx Para ? ? ? 3 ? Spontaneous abortions ? ? ? 1 Hx # Term Pregnancies ? Ectopic pregnancies ? Hx # Pregnancies ? Multiple births ? # of living children ? ? ? 4 Past Pregnancies Del. Date Name GA/Weeks Outcome Route Bth Weight Infant Gen Labor Lgth Anesthesia Del Locatn Provider FOB 12/13/12 Chika 39 live - full term 6lbs 6oz Female 11 hours epidural [facility] Dr. Gaurang Nam 03/23/14 Manohar 39 live - full term 6lbs 5oz Male 5 hours epidural [facility] Dr. Gaurang Nam 08/20/18 Maria Fernanda 39 live - full term 6lbs 6oz Female 5 hours epidural [facility] Dr. Gaurang Nam 09/26/21 Eugene 38 live - full term ? Male ? epidural [facility] Luzmaria Rauschh Delivery Date: 12/13/12? Last Updated by: Trina Villarreal ? ? ? no complications Delivery Date: 03/23/14? Last Updated by: Trina Villarreal ? ? ? no complications Delivery Date: 08/20/18? Last Updated by: Trina Villarreal ? ? ? no complications Delivery Date: 09/26/21? Last Updated by: Tammy Price ? ? ? see problem list for complications, IAL 38 SM Eugene Depression Screen PHQ-2/9 PHQ-2 Over the last 2 weeks, how often have you been bothered by any of the following problems? 1. Little interest or pleasure in doing things: not at all 2. Feeling down, depressed, or hopeless: not at all Total score: 0 Post HPI preop BS: Details: SARAVANAN BLAKE is a 31 year old who presents for her post visit. Infant Feeding: Breast Menses resumed: No [employer] since delivery: No Emotional Support: Yes Last Pap:: 2020 ROS Const Reports system reviewed and no additional complaints, except as documented GI Reports system reviewed and no additional complaints, except as documented, Denies bloating, Denies constipation, Denies nausea and Denies vomiting Reports system reviewed and no additional complaints, except as documented, Denies abnormal vaginal bleeding, Denies pelvic pain, Denies sexual dysfunction, Denies urinary incontinence, Denies urinary hesitancy, Denies urinary urgency and Denies vaginal discharge Skin/Breast Reports system reviewed and no additional complaints, except as documented and Reports as per HPI Psych Reports as per HPI Exam Const General: cooperative, healthy appearing, comfortable and no acute distress HENNM Head: normal to inspection Neck Neck: normal visual inspection and no lymphadenopathy Thyroid: thyroid normal Chest Breast inspection: normal inspection of the breasts and normal inspection of the axillae Breast palpation: normal palpation of the breasts and normal palpation of the axillae Resp Effort & Inspection: normal respiratory effort GI Inspection: normal to inspection Palpation: soft, no hepatosplenomegaly and nontender General: bladder normal to palpation External Female Exam: normal external appearance and normal appearance of the urethra Urethra: normal appearance of the urethra Speculum Exam - Vagina: normal appearance of the vagina and normal vaginal discharge Speculum Exam - Cervix: normal appearance of the cervix Bimanual Exam- Vagina & Uterus: normal bimanual exam, uterine size normal, bladder normal to palpation, uterine shape normal and non-tender Bimanual Exam- Adnexa, other: normal adnexae and normal Pelvic Support: normal Skin General: no rashes or lesions noted Coding Level of Care Code No Charge Diagnoses care and examination? Z39.2 Sterilization? Z30.2 Assessment and Plan Assessment and Plan (1) care and examination: ?Status:?Acute (2) Sterilization: ?Status:?Acute ?Comment: plan lap BS Plan Cervical cancer screening: up to date Contraceptive plans: bs Complications: none Follow up for annual exams or sooner if indicated. UPDATE- I have seen the patient and performed any clinically relevant updates to the history and physical exam. Luzmaria Horan MD
[2021-11-28] VITALS (9 sets, daily range): BP systolic 104–126; BP diastolic 58–74; PULSE 61–75; RESP 14–18; TEMP 36.2–36.7; O2SAT 96–99; BMI 27.6
[2021-11-28 12:07] LABS: Internal QC Validated? YES +Cl - CLEAR BKGD; Pregnancy, Urine Negative Negative
[2021-11-28] MEDS: Lactated Ringers 1,000 ML 125 ML IV (12:16)
--- NOTE | 2021-11-28 14:25 | FALS_PTH ---
PATIENT: SARAVANAN BLAKE [place] [facility] [place][id number] AGE/SX: 31/F ROOM: RE11/28/[address]: Dr. Luzmaria Horan MD : 1990 BED: DIS: 11/28/2021 SPEC #: [id number] RECD: 11/28/21 16:04 STATUS: ALEKSANDAR VALENTIN #: [id number] LES: 11/28/21 14:[address]: Luzmaria Horan DEPT: SURGICAL PATHOLOGY RECD BY: Karthik Suggs ENTERED: 11/29/21 07:28 SP TYPE: FALL TUBES OTHR DR: MD Dr. Giovanny Orourke DO Tissues: Fallopian tube Procedures: Surgery Specimen Level II HEADER OPERATION: Laparoscopic, salpingectomy PRE-OP DIAGNOSIS: Desires sterilization TISSUE SUBMITTED: Bilateral fallopian tubes MICROSCOPIC DIAGNOSIS Bilateral fallopian tubes, salpingectomy: Bilateral fallopian tubes, no pathologic diagnosis. SJ 11/30/21 MICROSCOPIC DESCRIPTION Slides are reviewed. GROSS DESCRIPTION Received in fixative is one container labeled with the patient's name and designated bilateral fallopian tubes. The specimen consists of bilateral fallopian tubes including fimbrial ends measuring 5.0cm in average length and 0.7cm in average diameter. The fallopian tubes are not identified as right or left. Sections reveal unremarkable cut surfaces. Wedding Makeup Artist sections are submitted in two cassettes with each cassette containing one fallopian tube. / AM:hermes 11/29/21 TC:4 CPT: 97019 x2
[2021-11-28] MEDS: Bupivacaine 0.25% 30 ML Vial (14:39)
--- NOTE | 2021-11-28 14:39 | OP.PCM_ITS ---
Problems Associated Problem List Diagnoses (1) Sterilization: Report of Operation Date of Procedure: 11/28/21 Pre-Operative Diagnosis: see problem list Post-Operative Diagnosis: same Surgery/Procedure Performed:: laparoscopic bilateral salpingectomy, recent postpatum Description of Surgical Findings:: nl uterus tubes ovaries, incidental uterine peroforation self limited no intervention needed Surgeon: Luzmaria Horan decorator inspector: Joseline Suarez Type of Anesthesia: General and Local Special Medications: none Specimen's removed: tubes Drains: none Estimated Blood Loss (mL): 50 Fluids Replaced: crystalloid Description of Procedure: Patient was taken in the operating room and was placed under general anesthesia was prepped and draped in normal sterile fashion in the dorsal lithotomy position. Bladder was drained of clear urine and SCDs were on preoperatively. Uterus was sounded and a uterine manipulator was placed after dilating. suspicio n for perforation was made due to sounding longer. Attention was then paid to the abdominal portion of the procedure and the umbilicus was elevated with towel clamps and injected with Marcaine and after a 5 mm incision was made and the Veress needle was entered into the abdomen confirmed to be intra-abdominal with a low opening pressure of less than 5 mmHg. Abdomen was insufflated with CO2 gas and a 5 mm optical trocar was placed under direct visualization. perforation or uterus confirmed but noted to be self limited with limited bleeding. A 5 mm port suprapubically was placed under direct visualization. Uterus was well visualized and bilateral fallopian tubes identified and bilateral tubes were elevated and transecting across the mesosalpinx and the attachment to the uterine corpus bilaterally the tubes were removed without complication. Excellent hemostasis was noted. Fallopian tubes were removed through the lower port site without complication. Liver and upper abdomen were visualized notably within normal limits and no other gross abnormalities were seen in the abdomen. hernia was noted to be intact at umbilicus but additional suture made through the fascia due to patient perception of a small hernia present at umbilicus. All instruments removed from the abdomen after gas was desufflated. Port sites were closed with 3-0 Monocryl Steri's and op sites were applied. All instruments removed from the vagina and patient was awoken and taken recovery in stable condition. Grafts/Implants Used: none Complications none Admit VTE Documentation VTE Present on Admission: No VTE Mechan Device Prophylaxis: SCD's Multi Select Codes Urinary/Genital Urinary/Genital CPT Codes: 09810 Laproscopic BS/O
--- NOTE | 2021-11-28 14:42 | DCINST_ITS ---
Discharge Instructions Diet Discharge Diet: No restrictions Activity Discharge Activity: Return to Normal Activity, May Drive (when pain free) and May Shower May resume sexual activity in: 1 week Weight Bearing Status: Full weight bearing Lifting Restrictions: 30 lbs for 2 weeks Dressing / Incision Call your doctor if your incision/area has: Continuous Slow Oozing, Sudden Increased Bleeding, Increased Pain/ Swelling, Increased Redness and Foul Smelling Discharge Call your doctor if you observe: Fever of 101 or Higher, Using more than 1 pad per hour, Shortness of breath, Chest pain and Uncontrolled pain Suture Line Care: Avoid Pulling/Pushing and Avoid Pinching/Bending Remove Dressing in: 1 week (if present) Cleanse incision/area with: Soap & Water and Keep Dressing Clean & Dry Follow Up Care Please Follow Up With: Luzmaria Horan MD When: Call to make an appointment with your doctor for a postop visit in 2 weeks Test Results: Test results from this visit will be discussed in further detail at your follow- up appointment, if applicable. Discharge Plan Admission Attending Provider: Luzmaria Horan Primary Care Provider: Giovanny Doyle Consulting Providers: Harpreet Martines Discharge Orders/Prescriptions Prescriptions: New oxycodone-acetaminophen [Percocet] 5-325 mg tablet 1 tab PO Q6H PRN (Reason: pain) 7 Days Qty: 20 0RF naproxen [naproxen] 500 mg tablet 500 mg PO BID PRN PRN (Reason: Pain) Qty: 30 1RF Referrals / Follow Up: Giovanny Doyle DO [Primary Care Provider] - Disposition Disposition (needs filled in before D/C Order can be placed): Home, Self Care
== END 2021-11-28 17:59 | disposition home or self-care (01) ==
LOC: SDC 11:28 → AC 11:43
PROVIDERS: Anesthesiology; PCP Preventive Medicine Occupational Medicine; Referring Provider Obstetrics & Gynecology; Visit Provider Obstetrics & Gynecology
PROC: (CPT 58661; principal; 2021-11-28 14:10)
DX: Z30.2 Encounter for sterilization (principal)
CPT/HCPCS: 58661; 00840; 36415; 81025; 85025; 86850; 86900; 86901; 88302; J7120; J2405

== ENCOUNTER 2022-01-11 15:00 | Outpatient (RCR) | payer BC, MEDICAID, SELFPAY ==
--- NOTE | 2021-12-14 14:31 | HP.PTEVAL_ITS ---
Patient's Visit Information SARAVANAN BLAKE is a 31 year old F referred to Physical Therapy by JAYJAY Samuel with a diagnosis of R patellofemoral syndrome, R sided sciatica. Date of Evaluation: 12/12/21 Physical Therapist: Star Tomas DPT - Visit Plan Frequency: 2x /Week Duration: 6 Weeks Plan: Start with quad strengthening, glute med/max strengthening. May use US for pain if needed. Progress to knee stability exercises as able. Trial REIL for her distal LE symptoms. - Subjective Pt. is here today for her initial evaluation with diagnosis of R patellofemoral syndrome and R sided sciatica. Pt. reports no mech of injury, but has been having increased pain for ~1 year. She thinks it got worse after having an injection around that time frame. Pt. has not done much exercise for her knee. She has a new born baby and 3 other children as well and has bene trying to be active with them. She reports burning as he pain symptoms, but no locking or giving out on her. Increases pain: walking, standing, squatting and stairs. Elevating does helm, but does not take away her symptoms. She did have an MRI showing no acute abnormalities of note, but signs of PF syndrome. Pt. has done ice with temp relief. She does have some posterior/lateral leg pain at times as well. She reports this is mostly when her knee is really sore after doing a lot of walking. Sleeping is an issue with getting comfortable as well. Once a sleep she can stay asleep. Pt. 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 Pt. is hopeful to reduce symptoms in order to get back to all activities with children and household activities without issues. - Pain R knee Pain Intensity (Out of 10): 5 Pain Intensity Range: 2, 8 - Objective POSTURE: Pt. has fairly normal posture in stance, slight flexed posture. Slight lateral wt. shift to L side. Lack TKE on R side. PALPATION: Pt. has tenderness along medial and lateral joint line. Pt. has some tenderness along lateral knee and IT band region. NEURO: normal throughout. ROM: R knee: 0-2-87deg. PROM: 0-0-96deg. Pain with over pressures. LUMBAR ROM: full, mild loss of extension no increase in symptoms. MMT: LLE 5/5 throughout. RLE: ankle 5/5 throughout; knee: ext 4/5 increase NW, flexion 4/5 increase NW; hip: flexion 4+/5 increase NW, abd 4/5, ext 4/5. Core strength- poor. GAIT: Pt. ambulates with slight lack of R knee TKE during stance phase. Normal flexion during swing. Decreased l sided step length. Slight antalgic during R stance phase. STAIRS: step to pattern with 2 HR, loading LLE only. - Special Tests L/S Slump test left side: Negative L/S Slump test right side: Negative L/S Left Straight Leg Raise: Negative L/S Right Straight Leg Raise: Negative Lumbar Standing: Flexion - Mechanical Response: No effect Lumbar Standing: Flexion - Symptoms During Testing: No effect Lumbar Standing: Flexion - Symptoms After Testing: No effect Lumbar Standing: Extension - Mechanical Response: No effect Lumbar Standing: Extension - Symptoms During Testing: Produces Lumbar Standing: Extension - Symptoms After Testing: No worse R Knee Josefina - Meniscus: Positive R Knee Sarah - ACL: Negative R Knee Anterior Drawer - ACL: Negative R Knee Pivot Shift - ACL, Ant. Rotator Instability: Negative R Knee Posterior Drawer - PCL: Negative R Knee Valgus - MCL: Negative R Knee Varus - LCL: Negative R Knee Patellar Grind - PFS: Positive - Balance/Special Test Scores Lower Extremity Functional Score: 37 - Goals Goal 1:: LTG: Pt. to be I with HEP for quad, glute med and core strengthening. Goal Time Frame: 4-6 Weeks Goal 2:: STG: Pt. to have normal gait pattern without increase in symptoms. Goal Time Frame: 2-4 Weeks Goal 3:: LTG: Pt. to have increased RLE strength by 1/2 grade of all effected musculature. Goal Time Frame: 4-6 Weeks Goal 4:: LTG: Pt. to negotiate 1 flight of steps with 1 HR without increase in symptoms. Goal Time Frame: 4-6 Weeks Goal 5:: STG: Pt. to have full ROM of R knee without increase in symptoms. Goal Time Frame: 2-4 Weeks - Rehabilitation Potential Physical Therapy Diagnosis: Pt. has signs and symptoms consistent with R patellofemoral syndrome, R sided sciatica. She has subsequent hypomobility, increased pain, difficulty walking, and difficulty with functional mobility. Pt. would benefit from PT to work on mobility, strength, and lumbar ROM. She has some marked core weakness, but is stil recovering from recent . Rehabilitation Potential: Good - Anticipated Interventions Patient/Client Instruction: Educate patient on: Condition, Plan of Care, Risk Factors, Benefits of Fitness Program For the Purpose of:: To improve health and function, To foster healthy habits, To improve decision making, To facilitate caregiver knowledge, To improve self management, To prevent re-injury, To improve ability to perform tasks related to life management Therapeutic Exercise to Include: Strength training, Power training, Coordination, Body mechanics, Flexibilty training, Gait and locomotor training, Passive ROM, Active ROM, Dynamic Lumbar Stabilization, Maria Fernanda Exercises For the Purpose of:: To decrease pain, To decrease swelling/inflammation, To increase ROM, To improve nutrient delivery to tissue, To increase oxygenation perfusion, To improve muscle performance and motor function, To improve ability to perform ADL's, To increase tolerance to activity/condition/position, To improve performance and independence with ADL's, To improve gait and locomotor functions, To improve health of tissue, To decrease soft tissue restriction, To increase flexibility/ROM, To improve endurance Manual Therapy Techniques to Include: Mobilization For the Purpose of:: To decrease pain, To decrease swelling/inflammation, To inc rease ROM, To improve nutrient delivery to tissue, To increase oxygenation perfusion Cryotherapy (ice pack, ice massage): Yes Ultrasound (thermal/non thermal): Yes For the Purpose of:: To decrease pain, To decrease swelling/inflammation, To increase ROM, To improve nutrient delivery to tissue, To increase oxygenation perfusion Thank you for the opportunity to evaluate your patient. For Medicare and Medicare HMO plans, please review the plan of care and approve it. It will need to be FAXED BACK to us at [phone] for Medicare purposes. For Medicare only, by signing this I certify the plan of care. Please let me know if there are questions or concerns regarding this plan of care. Physician Signature: Date:
== END 2022-01-11 19:00 | disposition home or self-care (01) ==
LOC: PT 15:00
PROVIDERS: PCP Preventive Medicine Occupational Medicine
DX: M22.2X1 Patellofemoral disorders, right knee (principal); M54.31 Sciatica, right side
CPT/HCPCS: 97110; 97161

== ENCOUNTER 2022-02-18 20:24 | Emergency (ER) | payer BC, MEDICAID, SELFPAY ==
[2022-02-18 20:25] VITALS: BP 128/73; PULSE 81; RESP 16; TEMP 35.8; O2SAT 97; BMI 28.2
[2022-02-18 20:28] VITALS: BP 123/73; PULSE 81; RESP 16; TEMP 35.8; O2SAT 97
--- NOTE | 2022-02-18 21:14 | EKG12_ITS ---
Test Reason : CP Blood Pressure : / mmHG Vent. Rate : 070 BPM Atrial Rate : 070 BPM P-R Int : 120 ms QRS Dur : 098 ms QT Int : 412 ms P-R-T Axes : 036 072 050 degrees QTc Int : 444 ms Normal sinus rhythm Normal ECG Confirmed by LILIA GIL, LENO ([id number]), editorial director HERB DAMON ([id number]) on 02/21/2022 11:34:56 AM Referred By: SARAH Confirmed By:LENO RODRIGUES MD
--- NOTE | 2022-02-18 21:20 | RAD_ITS ---
STUDY: X-RAY CHEST REASON FOR EXAM: Female, 31 years old. cp TECHNIQUE: PA and lateral views of the chest. COMPARISON: None. FINDINGS: The lungs are clear and expanded. There is no demonstrated pleural abnormality. Normal size heart. Normal mediastinum and rogers. Normal visualized pulmonary arteries. Normal visualized aortic arch and descending thoracic aorta. Normal visualized thoracic spine. Normal visualized ribs, clavicles, and shoulders. There is no demonstrated abnormality of the visualized soft tissue structures of the upper abdomen. RAD/Chest PA and Lateral IMPRESSION: Normal x-ray examination of the chest. Electronically Signed: Joao Wang MD at 21:48 EST ,
[2022-02-18 22:20] LABS: Troponin-I HS 3 pg/mL (3.0-54.0)
--- NOTE | 2022-02-18 22:46 | EDS_ITS ---
HPI History of Present Illness Chief Complaint: Chest Pain Detail of Chief Complaint: Central sharp tight chest discomfort Informant: patient Onset/Context/Timing Onset: Yesterday (Evening) Activity at onset: sudden Timing: Continuous Quality: Positive for Pressure and Sharp Location: Substernal Current Severity: Moderate Maximum Severity: Moderate Worsened By: Nothing Relieved By: Nothing Associated Symptoms: Negative for Nausea, Vomiting, Diaphoresis, Dyspnea, Cough, Fever, Lightheadedness, Acid Reflux or Palpitations Narrative Narrative: Patient is a 31-year-old woman who presents with sharp pressure-like sensation mid chest with no associated symptoms or radiation. She denies intolerance to greasy or fried foods. She denies history of hiatal hernia, reflux or peptic ulcer disease. She denies history of PE or DVT. She is not on hormonal therapy and has no risk factors. She denies leg pain, swelling or discoloration. She has not had this discomfort in the past. She does have a mitral valve prolapse. Prior Similar Symptoms: No CVD Risk Factors: Negative for Hypertension, Diabetes, Hypercholesterolemia, Family History 1' </=55 or Smoking PE Risk Factors: Negative for Recent Travel/Surgery, Recent Immobilization, Prior DVT or PE, Cancer or OCP + Smoking + >/=35 TAD Risk Factors: Negative for Marfan's Syndrome, Hypertension or Family History PFSH PFS Medical History Anxiety Anxiety and depression Depression History of blood transfusion Low-lying placenta in second trimester MVP (mitral valve prolapse) Positive GBS test care and examination hemorrhage Seizures Sterilization Vaginal delivery Wears glasses Home Medications NK 02/18/22 [History Last Taken Unknown] Allergy/AdvReac Type Severity Reaction Status Date / Time dicyclomine Allergy Mild SOB, hives Verified 11/29/21 13:47 misoprostol Allergy Mild hemmorrhage Verified 11/29/21 13:47 lactose AdvReac Abd Verified 11/29/21 13:47 cramps/diarrhea Family History Father Hypertension Mother Hypertension Grandmother CAD (coronary artery disease) Mother Diabetes Father Sarcoidosis Surgical History H/O dilation and curettage Social History household members: family number of children: 3 Smoking Status: Never smoker alcohol intake: never substance use type: does not use seatbelt use: always do you feel safe at home: Yes additional social history: - Cyril VASQUEZ ROS ED Constitutional Constitutional ED: Denies chills, fever(s), subjective, sweats or weight loss Eyes Eyes: Reports none; Denies blurry vision or change in vision ENT ENT ED: Denies ear pain, rhinorrhea or sore throat Respiratory/Chest Respiratory/Chest: Denies cough, dyspnea or dyspnea on exertion Gastrointestinal Gastrointestinal: Denies abdominal pain, nausea or vomiting Genitourinary Genitourinary ED: Denies dysuria, hematuria or urinary frequency Musculoskeletal Musculoskeletal: Denies arthralgias, back pain, myalgias or neck pain Integumentary Denies abscess, Abrasions or rash Neurologic Neurologic: Denies headache(s) or paresthesias Psychiatric Psychiatric: Reports anxiety and depression Endocrine Endocrinology: Denies cold intolerance, heat intolerance or polydipsia Hematologic/Lymphatic Hematologic/Lymphatic: Denies easy bleeding or easy bruising EXAM Physical Exam Const Vital Signs: 02/18/22 20:25 02/18/22 20:28 02/18/22 20:36 Temperature 96.5 F L 96.5 F L Temperature Source Temporal Temporal Pulse Rate 81 81 Respiratory Rate 16 16 Respiratory Effort Normal Blood Pressure 128/73 H 123/73 H Blood Pressure Mean 91 89 Pulse Ox 97 97 Oxygen Delivery Method Room Air Room Air Positive well nourished and well developed General Appearance ED: well developed and NAD; Negative for pallor HEENT Reports TM's clear and moist mucous membranes normocephalic and atraumatic Tympanic Membrane ED: Yes TM's clear Eyes PERRL and EOMs intact bilaterally General Eye ED: Negative for pale conjunctiva or scleral icterus Neck no lymphadenopathy, supple and no JVD Chest Wall inspection of chest normal and palpation of chest normal Chest Narrative: Is pain no patient right and left parasternal area. This does reproduce her pain. Resp normal respiratory effort Effort and Inspection: Negative for pain with movement Cardio regular rate, regular rhythm, S1 normal heart sound, S2 normal heart sound and no murmurs Peripheral Pulses: pulses 2+ throughout GI normal to inspection, nondistended, normoactive bowel sounds, soft to palpation, non-tender and non-distended; Negative for hepatosplenomegaly or no masses GI Narrative: Negative clinical Damon sign. Back/Spine no CVA tenderness Extremity normal to inspection Extremity Narrative: There is no asymmetry, swelling, discoloration, leg vein distention, palpable cords or tenderness along the distribution of the deep venous system. Neuro oriented x3, CN's II-XII intact bilaterally and no sensory deficits noted Sensorium / Orientation: awake Motor Exam: strength 5/5 throughout Psych Psych Narrative: Affect is flat. Patient seemed concerned by some of my responses. Mood & Affect: depressed; Negative for tearful Skin no rashes or lesions noted and no wounds General Skin Exam: Negative for jaundice or pallor Heart Score History: Slightly/Non-Suspicious ECG: Normal Age: </= 45 years Risk Factors: No Risk Factors Troponin: </= Normal Limit Score: 0 MDM MDM Lab Data Attestation: I reviewed the patient's lab results. Lab results narrative: With 24 hours of pain and a troponin of 3 negative predictive value 100%. Labs: Laboratory Results - last 24 hr 02/18/22 21:57 Troponin I High Sens 3 Radiography Chest X-Ray - ED: 2 View, Read by ED Physician (2 view chest x-ray reveals normal cardiac silhouette and size. Perihilar region normal. Lung parenchyma normal. Osseous structures normal. This was independently reviewed and interpreted by me.) and Lungs Diagnostic Testing: Clinical Impression(s) from Imaging Studies Chest X-Ray 02/18/22 21:20 IMPRESSION: Normal x-ray examination of the chest. Electronically Signed: Joao Wang MD at 21:48 EST , EKG Initial EKG: Attestation: I personally reviewed and interpreted this EKG as follows: Interpretation: Sinus Rhythm (Sinus rhythm 70 and the EKG is normal. OK interval is 120 ms. QS duration 98 ms. QT duration 112 ms. [place] is normal.) Treatment and Re-Evaluation Narrative: Home to follow-up with her primary care physician as needed. Discharge Plan Triage Chief Complaint: Chest Pain ED Provider: Pearson,Socrates Dx/Rx/DC Orders Clinical Impression: Chest pain, midsternal Instructions: ED Chest Pain, Noncardiac, ED Chest Pain, Uncertain Cause Prescriptions: No Action NK Primary Care Provider: Giovanny Doyle Referrals: Giovanny Doyle DO [Primary Care Provider] - As Needed Disposition Disposition: Home, Self Care
== END 2022-02-18 22:58 | disposition home or self-care (01) ==
PROVIDERS: Emergency Provider Emergency Medicine; PCP Preventive Medicine Occupational Medicine; Visit Provider Emergency Medicine
DX: R07.2 Precordial pain (principal); I34.1 Nonrheumatic mitral (valve) prolapse
CPT/HCPCS: 71046; 84484; 93005; 99283; A4216

== ENCOUNTER → 2022-05-22 | Outpatient (CLI) | payer BC, MEDICAID, SELFPAY ==
--- NOTE | 2022-05-22 14:23 | US_ITS ---
STUDY: ULTRASOUND BREAST - LEFT REASON FOR EXAM: Female, 32 years old. Pain in the left breast. TECHNIQUE: Axial and longitudinal images of the LEFT breast were performed with a high resolution ultrasound transducer. # OF IMAGES: 72 COMPARISON: None. FINDINGS: LEFT Breast: The entire left breast was examined with ultrasound. There is evidence of dense fibroglandular tissue. Mild dilatation of the retroareolar ducts. 2 adjacent benign-appearing lymph nodes are seen in the left axilla. The larger measures 2.2 cm x 1 cm x 0.9 cm. US/Breast Complete Unilateral IMPRESSION: Mildly dilated retroareolar ducts. There are 2 benign-appearing left axillary lymph nodes. ASSESSMENT CATEGORY: BIRADS Category 2: Benign. A letter regarding these results will be sent to the patient by the facility within 30 days. Electronically Signed: Adiel Garcia MD at 15:48 EST ,
== END | disposition home or self-care (01) ==
LOC: OPBI 14:21
PROVIDERS: PCP Preventive Medicine Occupational Medicine; Referring Provider Nurse Practitioner Family; Visit Provider Nurse Practitioner Family
DX: N64.4 Mastodynia (principal)
CPT/HCPCS: 76641

== ENCOUNTER → 2023-05-31 | Outpatient (CLI) | payer BC, MEDICAID, SELFPAY ==
--- NOTE | 2023-05-31 13:30 | RAD_ITS ---
INDICATION: HEMOPTYSIS EXAMINATION/TECHNIQUE: X-RAY - XR Chest 2 Views COMPARISON: FINDINGS: LINES/DEVICES: None. LUNGS: No consolidation, edema or effusion. No pneumothorax. MEDIASTINUM AND CARDIOVASCULAR STRUCTURES: Cardiac silhouette not enlarged. Central airways and mediastinal contour are unremarkable. BONES AND SOFT TISSUES: Unremarkable. RAD/Chest PA and Lateral IMPRESSION: No radiographic evidence of acute cardiopulmonary disease. Electronically Signed: Ayaan Heredia DO at 17:23 EST Reading Location ID and State: [facility] / [place] Tel [phone], Service support ,
== END | disposition home or self-care (01) ==
PROVIDERS: PCP Preventive Medicine Occupational Medicine; Referring Provider Preventive Medicine Occupational Medicine; Visit Provider Preventive Medicine Occupational Medicine
DX: R04.2 Hemoptysis (principal)
CPT/HCPCS: 71046

== ENCOUNTER → 2023-12-23 | Outpatient (CLI) | payer BC, MEDICAID, SELFPAY | END | disposition home or self-care (01) | PROVIDERS: PCP Preventive Medicine Occupational Medicine; Referring Provider Obstetrics & Gynecology; Visit Provider Obstetrics & Gynecology | DX: Z12.4 Encounter for screening for malignant neoplasm of cervix (principal); Z80.3 Family history of malignant neoplasm of breast | CPT/HCPCS: 36415; 87624; 88175; G0145 ==

== ENCOUNTER 2024-12-29 10:20 | Emergency (ER) | payer BC, MEDICAID, SELFPAY ==
[2024-12-29 10:21] VITALS: BP 149/71; PULSE 91; RESP 18; TEMP 37.1; O2SAT 99; BMI 24.7
--- NOTE | 2024-12-29 11:07 | EDS_ITS ---
HPI History of Present Illness Chief Complaint: Laceration Narrative Narrative: Patient is a 34-year-old female who presents to the emergency department chief complaint of seizure, depression, anxiety, mitral valve prolapse who presents to the emergency department with chief complaint of cutting her right thumb. States that she was cutting corn earlier this morning when the slicer went through her right thumb. States that she is unsure if she ever had a tetanus shot. [facility] Medical History Wears glasses History of blood transfusion Seizures Sterilization care and examination Vaginal delivery hemorrhage Depression Anxiety Low-lying placenta in second trimester Positive GBS test MVP (mitral valve prolapse) Anxiety and depression Home Medications ?Medication ?Instructions ?Recorded ?Last Taken ?Type multivitamin with minerals-folic tab PO .once daily Unknown History acid 0.4 mg tablet Allergy/AdvReac Type Severity Reaction Status Date / Time dicyclomine Allergy Mild SOB, hives Verified 12/29/24 10:21 misoprostol Allergy Mild hemmorrhage Verified 12/29/24 10:21 lactose AdvReac Abd Verified 12/29/24 10:21 cramps/diarrhea Family History Father Hypertension Mother Hypertension Breast cancer Grandmother CAD (coronary artery disease) Mother Diabetes Father Sarcoidosis Surgical History H/O dilation and curettage Social History adopted: No household members: family housing: house number of children: 4 current occupation: [employer] pets and animals: Yes pets and animals: cat(s) Smoking Status: Never smoker alcohol intake: never substance use type: does not use seatbelt use: always do you feel safe at home: Yes additional social history: - Cyril VASQUEZ ROS ED ROS Narrative Neurological: Denies numbness, weeks, tingling Musculoskeletal: Complains of right thumb pain Skin: Complains of right thumb laceration EXAM Physical Exam Narrative Exam Narrative: General: Patient lying in bed rest comfortably did not appear to be in acute distress Head: Atraumatic, normocephalic Eyes: PERRL bilaterally, EOMI bilaterally, no conjunctival injection or Neck: Soft, supple, trachea midline Cardiovascular: Regular rate and rhythm Extremities: +5/5 strength noted in the bilateral lower extremities, patient has full flexion extension of her right thumb, radial pulses +2/4 in the right upper extremity Neurological: Patient followed commands and that she was at [facility] year is 2024. Sensation grossly intact in the median, ulnar and radial nerve distribution bilaterally Skin: Patient has a complex laceration noted to her right thumb extending through her right nail. This is approximately 4-1/2 cm in length vertical no active bleeding Const Vital Signs: 12/29/24 10:21 Temperature 98.7 F Temperature Source Oral Pulse Rate 91 Respiratory Rate 18 Blood Pressure 149/71 H Blood Pressure Mean 97 Pulse Ox 99 Oxygen Delivery Method Room Air MDM MDM MDM Narrative Medical decision making narrative: Patient is a 34-year-old female who presents to the emergency department chief complaint of right thumb laceration. On the differential diagnose includes but not limited to nailbed injury, laceration, open fracture. Once workup is obtained reviewed she will be reevaluated. Patient's tetanus shot will be updated. Patient x-ray of her thumb showed no fracture laceration was noted. Patient had nailbed laceration repaired here in the emergency department see procedure note for separate details. She tolerated this well without complications. She was advised to keep the area dry and clean watch out for signs of infection. She was advised to follow-up with Dr. Forde in the outpatient setting to have her sutures removed and for follow-up purposes. She is encouraged return with any other concerns or worsening symptoms. Significant other bedside is also agreeable with this plan all question concerns answered she was discharged home in stable condition. Procedure note Procedure name: Laceration repair Indication: Reduce risk of infection Location: 4-1/2 cm vertical laceration through the right nail involving nailbed Preprocedure diagnosis: Laceration Postprocedure diagnosis: Repaired laceration Informed consent was obtained prior to procedure started. Procedure: The appropriate timeout was taken. The area was prepped and draped in usual sterile fashion. Local anesthesia was achieved using 4 cc of lidocaine 1% without epinephrine using digital block. Wound was copiously irrigated. 6 4-0 Ethilon interrupted sutures were placed, which was done after the medial aspect of her right thumb nail was removed. Estimated blood loss was less than 0.5 mL. Dressing was applied to the area and anticipatory guidance, as well as standard postprocedure care was explained. Return precautions are given. Patient tolerated procedure well without any complications. Follow-up visit for suture removal and evaluation of laceration. Radiography Diagnostic Testing: Clinical Impression(s) from Imaging Studies Finger X-Ray 12/29/24 11:10 IMPRESSION: No fracture. Laceration is present. Reading Location: [id number] Discharge Plan Triage Chief Complaint: Laceration ED Provider: Jean Pierre Reddy Dx/Rx/DC Orders Clinical Impression: Laceration of right thumb, Nailbed injury, History of seizure Prescriptions: No Action multivit with min-folic acid 0.4 mg tablet PO .once daily Primary Care Provider: Care Physician,Julianna Primary Referrals: Care Physician,No Primary [Primary Care Provider] - Giovanny Forde MD [Med Staff - Active Staff] - Activity Restrictions/Additional Instructions: Follow-up with Dr. Forde to have your sutures removed in approximately 7 days. Watch out for signs infection such as surrounding redness, purulent drainage if your thumb becomes very swollen red and painful you need to return to the emergency department immediately. Your tetanus shot was updated. Keep the area dry and clean you may shower and let warm soapy water run over this do not soak your sutures do not scrub them. Keep them dry Print Language: Chadian
--- NOTE | 2024-12-29 11:10 | RAD_ITS ---
PROCEDURE: FINGER(S) MIN 2 VIEWS N/A REASON FOR EXAM: THUMB LAC TECHNIQUE: Procedure Code: RADFIN Modality: DX Procedure: FINGER(S) MIN 2 VIEWS Laterality: Right COMPARISON: None FINDINGS: Bones: No fracture. Joints: Normal alignment. Soft tissues: Laceration is seen of the distal portion of the 1st digit. Other: No foreign body RAD/Finger(s) Min 2 Views IMPRESSION: No fracture. Laceration is present. Reading Location: [id number]
[2024-12-29] MEDS: Lidocaine 1% (20 ml mdv) 20 ML Vial 10 ML INFILT (11:17)
[2024-12-29 13:09] VITALS: BP 124/78; PULSE 61; RESP 18; TEMP 36.7; O2SAT 99
== END 2024-12-29 13:12 | disposition home or self-care (01) ==
PROVIDERS: Emergency Provider Emergency Medicine; Visit Provider Emergency Medicine
DX: S61.011A Laceration without foreign body of right thumb without damage to nail, initial encounter (principal); X58.XXXA Exposure to other specified factors, initial encounter
CPT/HCPCS: 12002; 73140; 90715; 99284

== ENCOUNTER → 2025-01-20 | Outpatient (CLI) | payer BC, SELFPAY ==
[2025-01-27 17:08] LABS: HPV APTIMA, High Risk Negative (Negative)
== END | disposition home or self-care (01) ==
PROVIDERS: Referring Provider Obstetrics & Gynecology; Visit Provider Obstetrics & Gynecology
DX: Z12.4 Encounter for screening for malignant neoplasm of cervix (principal); N39.46 Mixed incontinence; R10.20 Pelvic and perineal pain unspecified side; G89.29 Other chronic pain
CPT/HCPCS: 87086; 87624; 88175; G0145

== ENCOUNTER → 2025-01-29 | Outpatient (CLI) | payer BC, MEDICAID, SELFPAY ==
--- NOTE | 2025-01-29 08:22 | US_ITS ---
PROCEDURE: PELVIC W/ TRANSVAGINAL REASON FOR EXAM: PELVIC PAIN TECHNIQUE: Procedure Code: [id number] Modality: US Procedure: PELVIC W/ TRANSVAGINAL COMPARISON: None FINDINGS: Measurements: Uterus: 7.4 cm x 5 cm x 4 cm with a volume of 76 mL Endometrial Thickness: 8 mm trilaminar. Minimal endometrial fluid. Right Ovary: 3.4 cm x 2.7 cm x 2.5 cm with a volume of 11.7 mL. Left Ovary: 3.7 cm x 2.9 cm x 2.8 cm with a volume of 16 mL. TRANSABDOMINAL: Uterus: Normal size, myometrial echotexture, and contour. Nabothian cyst. Endometrium: 6 mm. Right ovary: Normal size and echotexture. Left ovary: Normal size and echotexture. Other: No large pelvic mass identified. Transvaginal sonography was performed to better visualize the endometrium. TRANSVAGINAL: Uterus: Anteverted. Endometrium: Normal echotexture. Right ovary: Normal size and echotexture. Left ovary: Normal size and echotexture. Other adnexal findings: None. Cul-de-sac: Minimal free fluid in the pelvis within normal limits. Tenderness: No tenderness US/Pelvic w/ Transvaginal IMPRESSION: Small amount of free fluid in the pelvis. Reading Location: [place] [id number]
== END | disposition home or self-care (01) ==
LOC: US 08:20
PROVIDERS: Referring Provider Obstetrics & Gynecology; Visit Provider Obstetrics & Gynecology
DX: N39.46 Mixed incontinence (principal); R10.20 Pelvic and perineal pain unspecified side; G89.29 Other chronic pain
CPT/HCPCS: 76830; 76856